=== PATIENT | male | born 1935 | race Caucasian/White ===

== ENCOUNTER 2022-08-07 14:05 | Outpatient (REF) | payer MEDICARE, SELFPAY ==
--- NOTE | ~2022-08-07 | US_ITS ---
EXAMINATION: US THYROID CLINICAL INFORMATION: Single thyroid nodule. COMPARISON: None TECHNIQUE: Linear transducer grayscale and color Doppler examination with attention to the region of the thyroid. FINDINGS: SIZE: Measurements of the thyroid lobes and nodules are given in sagittal, anteroposterior and transverse dimensions respectively. Right Thyroid Lobe: 6.2 x 2.7 x 1.8 cm, volume 16.0 mL. Parenchyma: The gland echotexture is homogeneous. Thyroid vascularity is increased. Left Thyroid Lobe: 5.6 x 2.3 x 2.1 cm, volume 14.7 mL. Parenchyma: The gland echotexture is homogeneous. Thyroid vascularity is increased. Isthmus: 0.3 cm in maximum AP dimension. Estimated total number of nodules greater than or equal to 1 cm: 1. 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 Location: Right inferior. Size: 0.7 x 0.6 x 0.6 cm, volume 0.1 mL. Nodule characteristics: Composition: Solid (2). Echogenicity: Isoechoic (1). Shape: Not taller than wide (0). Margins: Ill-defined (0). Echogenic Foci: None (0). ACR TI-RADS total points: 3 ACR TI-RADS category: 3 2. Location: Right inferior. Size: 0.6 x 0.3 x 0.6 cm, volume 0.1 mL. Nodule characteristics: Composition: Solid/almost completely solid (2). Echogenicity: Isoechoic (1). Shape: Not taller than wide (0). Margins: Ill-defined (0). Echogenic Foci: Comet-tail artifacts (0). ACR TI-RADS total points: 3 ACR TI-RADS category: 3 3. Location: Left mid. Size: 2.0 x 1.4 x 1.6 cm, volume 2.3 mL. Nodule characteristics: Composition: Mixed cystic and solid (1). Echogenicity: Cannot be determined (1). Shape: Not taller than wide (0). Margins: Smooth (0). Echogenic Foci: Comet-tail artifacts (0). ACR TI-RADS total points: 2 ACR TI-RADS category: 2 4. Location: Left inferior. Size: 0.4 x 0.4 x 0.5 cm, volume 0.04 mL. Nodule characteristics: Composition: Solid (2). Echogenicity: Isoechoic (1). Shape: Not taller than wide (0). Margins: Ill-defined (0). Echogenic Foci: None (0). ACR TI-RADS total points: 3 ACR TI-RADS category: 3 NODES: No lymphadenopathy is seen in the tissue surrounding the thyroid gland. US/US thyroid IMPRESSION: 1. Bilateral thyroid nodules are noted, as detailed. 2. There is a diffuse goiter. 3. There is increased thyroid vascularity, which can be associated with thyroiditis. ACR TI-RADS RECOMMENDATION REFERENCE: Ultrasound-guided fine-needle aspiration, followup ultrasound, no further follow up. * TR1 (0 point) and TR 2 (2 points): No FNA or follow up. * TR3 (3 points): FNA if more than or equal to 2.5 cm in maximum dimension, followup ultrasound in 1, 3 and 5 years if 1.5 to 2.4 cm in maximum dimension. * TR4 (4-6 points): FNA if more than or equal to 1.5 cm in maximum dimension, followup ultrasound in 1, 2, 3 and 5 years if 1 to 1.4 cm in maximum dimension. * TR5 (more than or equal to 7 points): FNA if more than or equal to 1 cm in maximum dimension, followup ultrasound every year for 5 years if 0.5 to 0.9 cm in maximum dimension. * TR3, TR4 or TR5 nodules that are below the size threshold for followup receive no follow up.
--- NOTE | ~2022-08-07 | US_ITS ---
EXAMINATION: US RETROPERITONEAL LIMITED (RENAL ONLY) CLINICAL INFORMATION: Bilateral flank pain. COMPARISON: None TECHNIQUE: Real-time imaging of the kidneys. FINDINGS: RIGHT KIDNEY: 9.9 x 5.3 x 5.2 cm (SAG x AP x TRV). The kidney is normal in size, contour, and echogenicity. Renal cortical thickness is normal. No focal parenchymal lesions or hydronephrosis. At the interpolar aspect, a 2 mm nonobstructing calculus is seen, with twinkle artifact. At the lower pole, a 2 mm hyperechoic focus is seen, which does not meet formal ultrasound criteria for a calculus. LEFT KIDNEY: 8.8 x 4.2 x 5.5 cm (SAG x AP x TRV). The kidney is normal in size, contour, and echogenicity. Renal cortical thickness is normal. No renal calculi or focal parenchymal lesions. US/US renal BI IMPRESSION: A 2 mm right renal calculus is seen. No left renal calculus is seen. There is no hydronephrosis noted bilaterally.
== END 2022-08-07 14:06 | disposition home or self-care (01) ==
LOC: HO.US 14:05
PROVIDERS: Visit Provider Family Medicine
DX: E04.1 Nontoxic single thyroid nodule (principal); R10.9 Unspecified abdominal pain; C67.9 Malignant neoplasm of bladder, unspecified
CPT/HCPCS: 76536; 76775

== ENCOUNTER 2023-11-26 07:28 | Outpatient (REF) | payer BC, SELFPAY ==
--- NOTE | ~2023-11-26 | XR_ITS ---
EXAMINATION: XR SHOULDER, RIGHT CLINICAL INFORMATION: Pain. COMPARISON: None available. TECHNIQUE: AP neutral and scapular Y views of the right shoulder are submitted. FINDINGS: Bony alignment and mineralization are normal. No fracture or dislocation is seen. The glenohumeral joint is intact. A small accessory ossification center or loose body is seen inferior to the glenoid process. There is mild osteoarthritic change of the glenoid rim. The acromioclavicular and coracoclavicular intervals are normal. There is mild osteoarthritic change of the acromioclavicular joint. There is a distal acromial undersurface osteophyte. There is mild calcific tendinitis of the right rotator cuff insertion. There is a 1.1 cm round soft tissue calcification seen in the soft tissues of the anterior right upper arm. XR/XR shoulder RT min 2V IMPRESSION: 1. There is mild osteoarthritic change of the right glenohumeral and acromioclavicular joints. 2. There is calcific tendinitis of the right rotator cuff insertion. 3. A 1.1 cm round soft tissue calcification is seen in the soft tissues of the anterior upper right arm.
== END 2023-11-26 07:29 | disposition home or self-care (01) ==
LOC: HO.HOSX 07:28
PROVIDERS: Visit Provider Orthopaedic Surgery
DX: M25.811 Other specified joint disorders, right shoulder (principal)
CPT/HCPCS: 20610; 73030; J1020

== ENCOUNTER 2023-11-26 10:39 | Outpatient (AMB) | payer BC, SELFPAY ==
--- NOTE | 2023-11-26 10:40 | A.OFFVIS_ITS ---
Intake Vital Signs 11/26/23 11:11 Height 5 ft 8 in Weight 150 lb BMI 22.8 Intake Visit Reasons: [employer]- RT shoulder pain Intake Note: Yovany is a 88 year old Right handed new patient who presents with Right shoulder pain. Patient reports that his ROM has gotten worse over the last two months. Patient denies any numbness or tingling. The patient states that he aggravated his shoulder while shoveling snow. He has tried Tylenol and anti- inflammatory medicines which gave him minimal relief. Allergies No Known Allergies Allergy (Verified 11/26/23 10:58) Medication List - Last Reconciled 11/26/23 by Baljit Mo MD amlodipine 10 mg PO DAILY carvedilol 6.25 mg PO BID dicyclomine 10 mg PO BID PRN PFSH Surgical History (Updated 11/26/23 @ 11:05 by Evonne Herzog CMA) History of penectomy (~2017) Hx of prostatectomy (~2005) History of bladder surgery (~2005) Social History (Updated 11/26/23 @ 11:01 by Evonne Herzog CMA) Patient Tobacco Use Status: Former Tobacco user Physical Exam Vital Signs: BMI result Body Mass Index 22.8 Const Other: Well-nourished well-developed very friendly male awake alert and oriented x3 in no acute distress Extrem Other: Bilateral upper extremity examination shows good capillary refill, no skin lesions noted, normal sensation light touch Right shoulder examination shows slightly decreased range of motion when compared to his left shoulder, 4/5 strength with supraspinatus testing, positive impingement signs, no instability Office Procedures Joint Injection/Drain Joint Injection/Drain Primary Site: right shoulder Prep: site was prepped using aseptic technique Injected: 40 mg of, DepoMedrol and 1% plain lidocaine Procedure: The patient tolerated the procedure well Coding 16695 - Large joint Procedure code (CPT) selection complete Results Reviewed Results Reviewed: X-rays of the patient's right shoulder show moderate to severe acromioclavicular joint narrowing, a type 2 acromion, no acute bony abnormalities Assessment & Plan Assessment & Plan (1) Impingement of right shoulder: Code(s): M25.811 - Other specified joint disorders, right shoulder Plan Mr. Pierre presents with right shoulder pain due to impingement syndrome and rotator cuff tendinosis versus possible rotator cuff tearing. I had a lengthy discussion with the patient regarding the treatment options. He wishes to hold off on surgery for as long as possible. I agree with this plan. The risks and benefits of a right shoulder cortisone injection were discussed at length with the patient. The patient wished to proceed. He tolerated the injection well. He will continue with his home stretching program to prevent stiffness. Will contact me prior to his follow-up appointment in 3 months should any questions or concerns arise. Feel free to call me at any time should questions regarding his orthopedic management arise. I spent 22 minutes in reviewing the patient's records and imaging studies, seeing the patient and documenting in the medical record. Orders: Orders AMB Joint Injection/Aspiration Today M25.811 - Other specified joint disorders, right shoulder Coding Level of Care Code New Pt Level 2 (96584) Diagnoses Impingement of right shoulder M25.811 CPT Codes Coding - 71136 Large joint: 87992 - Large joint ([id number])
[2023-11-26 11:11] VITALS: BMI 22.8
== END 2023-11-26 11:24 | disposition home or self-care (01) ==
PROVIDERS: Visit Provider Orthopaedic Surgery
DX: M25.811 Other specified joint disorders, right shoulder (principal)
CPT/HCPCS: 20610; 99202

== ENCOUNTER 2024-02-26 10:13 | Outpatient (REF) | payer MEDICARE, SELFPAY ==
--- NOTE | ~2024-02-26 | XR_ITS ---
EXAMINATION: XR KNEE, LEFT CLINICAL INFORMATION: Pain in left knee COMPARISON: None available. TECHNIQUE: Three views of the left knee. FINDINGS: No fracture. Small joint effusion. There is moderate narrowing of the medial joint compartment with associated chondrocalcinosis. There is extensive arterial vascular calcification indicative of atherosclerotic disease. Nonstandard sunrise views limits evaluation of the patellofemoral joint compartment. XR/XR knee LT 3V IMPRESSION: 1. 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 2. Chondrocalcinosis. 3. Small joint effusion.
--- NOTE | ~2024-02-26 | XR_ITS ---
EXAMINATION: XR LUMBOSACRAL SPINE CLINICAL INFORMATION: Low back pain, unspecified COMPARISON: None available. TECHNIQUE: Three standing views of the lumbosacral spine. FINDINGS: There is moderate curve of the lumbar spine, convex right. There is straightening of the usual sterile lumbar lordosis which can be seen with muscle spasm. There are 5 nonrib-bearing lumbar-type vertebral bodies. The height of vertebral bodies is well-maintained. There is disc space narrowing with marginal osteophyte formation seen at L2-L3, L3-L4, L4-L5. The L5-S1 disc space is narrow. There is multilevel degenerative facet joint disease. There is grade 1 anterolisthesis of L3 respect to L4. There is extensive calcification of the abdominal aorta with mid to lower abdominal aortic aneurysm with maximal dimension of 3.2 cm anterior to posterior. Small coil sutures are seen in the right lower quadrant XR/XR lumbar spine 2-3V IMPRESSION: 1. Muscle spasm. 2. Moderate curve of the lumbar spine, convex right. 3. Multilevel degenerative disc disease and degenerative facet joint disease. 4. Grade 1 anterolisthesis of L3 on L4. 5. Mid to distal abdominal aortic aneurysm. Ultrasound of the abdominal aorta is recommended.
== END 2024-02-26 10:14 | disposition home or self-care (01) ==
LOC: HO.HOSX 10:13
PROVIDERS: Visit Provider Orthopaedic Surgery
DX: M54.50 Low back pain, unspecified (principal); M25.562 Pain in left knee
CPT/HCPCS: 72100; 73562

== ENCOUNTER 2024-02-26 12:35 | Outpatient (AMB) | payer BC, SELFPAY ==
[2024-02-26 12:52] VITALS: BMI 22.8
--- NOTE | 2024-02-26 12:52 | A.OFFVIS_ITS ---
Vital Signs 02/26/24 12:52 Height 5 ft 8 in Weight 150 lb BMI 22.8 Intake Visit Reasons: [employer]- LT leg pain Intake Note: Yovany is a 88 year old male who presents with Left leg pain from the knee down. Patient reports it has been going on for about a year and is a 9 on the 1- 10 pain scale. He states he is using aspircreme and acetaminophen with a little relief. He denies injury or surgery. He also reports intermittent back pain. The patient states that he did have an MRI of his low back 1-2 years ago at another facility. He is not sure of the exact location where the imaging study was performed. The patient states that he did not follow-up with a back specialist following the MRI. Allergies No Known Allergies Allergy (Verified 11/26/23 10:58) Medication List - Last Reconciled 02/26/24 by Baljit Mo MD amlodipine 10 mg PO DAILY aspirin 81 mg PO DAILY atorvastatin 10 mg PO DAILY carvedilol 6.25 mg PO BID dicyclomine 10 mg PO BID PRN PFSH Surgical History (Updated 11/26/23 @ 11:05 by Evonne Herzog CMA) History of penectomy (~2018) Hx of prostatectomy (~2005) History of bladder surgery (~2005) Social History (Updated 11/26/23 @ 11:01 by Evonne Herzog CMA) Patient Tobacco Use Status: Former Tobacco user Physical Exam Vital Signs: BMI result Body Mass Index 22.8 Const Other: Well-nourished well-developed very friendly male awake alert and oriented x3 in no acute distress Back/Spine/Pelvis Other: Low back examination shows left-sided paraspinal muscle tenderness, pain with range of motion, positive straight leg raise test on the left at 70 degrees Extrem Other: Left knee examination shows a minimal effusion, minimal crepitus with range of motion, minimal discomfort with range of motion, no instability Results Reviewed Results Reviewed: X-rays of the patient's lumbar spine taken today show diffuse degenerative disc disease, no acute bony abnormalities Of the patient's left knee taken today show mild to moderate joint space narrowing, no acute bony abnormalities Assessment & Plan Assessment & Plan (1) Low back pain: Code(s): M54.50 - Low back pain, unspecified Category: Medical (2) Left knee pain: Code(s): M25.562 - Pain in left knee Category: Medical Plan Mr. Pierre presents with progressively worsening low back pain which radiates down his left leg most likely due to lumbar stenosis or a disc herniation. Thus, I will arrange for the patient to have an evaluation in our pain management clinic. The patient states that he might be interested in a cortisone injection if he has a candidate for one. The patient is also instructed to get a copy of his previous lumbar spine MRI if at all possible. He will follow up with me on an as-needed basis. Feel free to call me at any time should questions regarding his orthopedic management arise. I spent 22 minutes in reviewing the patient's records and imaging studies, seeing the patient and documenting in the medical record. Orders: Orders XR lumbar spine 2-3V Today M54.50 - Low back pain, unspecified XR knee LT 3V Today M25.562 - Pain in left knee XR hip LT min 2V Today M25.552 - Pain in left hip Referrals Pain Management Referral M25.562 - Pain in left knee, M54.50 - Low back pain, unspecified
== END 2024-02-26 13:12 | disposition home or self-care (01) ==
PROVIDERS: Visit Provider Orthopaedic Surgery
DX: M54.50 Low back pain, unspecified (principal); M25.562 Pain in left knee
CPT/HCPCS: 99214

== ENCOUNTER 2024-10-13 12:43 | Outpatient (AMB) | payer BC, SELFPAY ==
--- NOTE | 2024-10-13 13:20 | MHC.OFFVIS ---
Vital Signs 10/13/24 13:21 Height 5 ft 8 in Weight 150 lb BMI 22.8 Intake Visit Reasons: Right shoulder pain Intake Note: Yovany is an 89 year old who presents with complaints of progressively worsening right shoulder pain. The pain as sharp nature. He has had cortisone injections in the past which gave him fairly good relief. He has done physical therapy exercises which aggravated his pain. He has tried Tylenol which gives him mild relief. He wishes to hold off on surgery if at all possible. Allergies No Known Allergies Allergy (Verified 10/13/24 13:21) Medication List - Last Reconciled 10/14/24 by Baljit Mo MD amlodipine 10 mg PO DAILY aspirin 81 mg PO DAILY atorvastatin 10 mg PO DAILY carvedilol 6.25 mg PO BID dicyclomine 10 mg PO BID PRN PFSH Surgical History (Updated 11/26/23 @ 11:05 by Evonne Herzog CMA) History of penectomy (~2017) Hx of prostatectomy (~2005) History of bladder surgery (~2005) Social History (Updated 11/26/23 @ 11:01 by Evonne Herzog CMA) Patient Tobacco Use Status: Former Tobacco user Physical Exam Vital Signs: BMI result Body Mass Index 22.8 Const Other: Well-nourished well-developed very friendly male awake alert and oriented x3 in no acute distress Extrem Other: Bilateral upper extremity examination shows good capillary refill, no skin lesions noted, normal sensation light touch Right shoulder examination shows slightly decreased range of motion when compared to his left shoulder, 4/5 strength with supraspinatus testing, positive impingement signs, tenderness over his acromioclavicular joint, no instability Office Procedures AMB Joint Injection/Aspiration Joint Injection/Aspiration Primary Site: right shoulder Prep: site was prepped using aseptic technique Injected: 40 mg of, DepoMedrol and 1% plain lidocaine Procedure: The patient tolerated the procedure well Coding 56469 - Large joint Procedure code (CPT) selection complete Assessment & Plan Assessment & Plan (1) Impingement of right shoulder: Code(s): M25.811 - Other specified joint disorders, right shoulder Category: Medical (2) Right shoulder pain: Code(s): M25.511 - Pain in right shoulder Plan Mr. Carter presents with right shoulder pain due to impingement syndrome and possible rotator cuff tearing. I had a lengthy discussion with the patient regarding the treatment options. The risks and benefits of a right shoulder cortisone injection were discussed at length with the patient. The patient wished to proceed. He tolerated the injection well. He will continue with his home stretching program. He will contact me prior to his follow-up appointment in 3 months should any questions or concerns arise. Feel free to call me at any time should questions regarding his orthopedic management arise. I spent 21 minutes in reviewing the patient's records and imaging studies, seeing the patient and documenting in the medical record. Orders: Orders AMB Joint Injection/Aspiration 10/13/24 M25.811 - Other specified joint disorders, right shoulder Coding Level of Care Code Est Pt Level 3 (94899) Complex EM visit Add On G2211 Diagnoses Impingement of right shoulder M25.811 Right shoulder pain M25.511 CPT Codes Coding - 73627 Large joint: 49669 - Large joint ([id number])
[2024-10-13 13:21] VITALS: BMI 22.8
== END 2024-10-13 14:02 | disposition home or self-care (01) ==
PROVIDERS: Visit Provider Orthopaedic Surgery
DX: M25.811 Other specified joint disorders, right shoulder (principal); M25.511 Pain in right shoulder
CPT/HCPCS: 20610; 99213

== ENCOUNTER → 2024-10-13 12:43 | Outpatient (BNVA) | payer BC, SELFPAY | PROVIDERS: Visit Provider Orthopaedic Surgery | DX: M25.511 Pain in right shoulder (principal); M25.811 Other specified joint disorders, right shoulder | CPT/HCPCS: 20610; J1010; J2003 ==

== ENCOUNTER 2025-01-11 13:01 | Outpatient (AMB) | payer MEDICARE, SELFPAY ==
--- NOTE | 2025-01-11 13:34 | MHC.OFFVIS ---
Vital Signs 01/11/25 13:35 Height 5 ft 8 in Weight 150 lb BMI 22.8 Intake Visit Reasons: Inj-Right shoulder, injection-last 10/13/24 Intake Note: Yovany is an 89 year old male who presents with complaints of right shoulder pain. He describes his pain as achy in nature. He has had cortisone injections in the past which gave him fairly good relief. He wishes to hold off on surgery if at all possible. He has tried Tylenol which gives him mild relief. Allergies gluten [Gluten] Allergy (Intermediate, Unverified 01/11/25 13:36) DIARRHEA polysorbate Adverse Reaction (Intermediate, Uncoded 01/11/25 13:36) DIARRHEA Medication List - Last Reconciled 01/11/25 by Baljit Mo MD amlodipine 10 mg PO DAILY aspirin 81 mg PO DAILY atorvastatin 10 mg PO DAILY carvedilol 6.25 mg PO BID dicyclomine 10 mg PO BID PRN PFSH Surgical History (Updated 10/15/24 @ 14:32 by Ximena Thompson) History of penectomy (~2017) Hx of prostatectomy (~2005) History of bladder surgery (~2005) Social History (System 10/15/24 @ 14:32 by Ximena Thompson) Patient Tobacco Use Status: Former Tobacco user Physical Exam Vital Signs: BMI result Body Mass Index 22.8 Const Other: Well-nourished well-developed very friendly male awake alert and oriented x3 in no acute distress Extrem Other: Bilateral upper extremity examination shows good capillary refill, no skin lesions noted, normal sensation light touch Right shoulder examination shows slightly decreased range of motion when compared to his left shoulder, 4+ out of 5 strength with supraspinatus testing, positive impingement signs, no instability Office Procedures AMB Joint Injection/Aspiration Joint Injection/Aspiration Primary Site: right shoulder Prep: site was prepped using aseptic technique Injected: 40 mg of, DepoMedrol and 1% plain lidocaine Procedure: The patient tolerated the procedure well Coding 98243 - Large joint Procedure code (CPT) selection complete Assessment & Plan Assessment & Plan (1) Impingement of right shoulder: Code(s): M25.811 - Other specified joint disorders, right shoulder Category: Medical Plan Mr. Carter presents with right shoulder pain due to impingement syndrome. The risks and benefits of a right shoulder cortisone injection were discussed at length with the patient. The patient wished to proceed. He tolerated the injection well. He will continue with his home stretching program. He will contact me prior to his follow-up appointment in 3 months should any questions or concerns arise. Feel free to call me at any time should questions regarding his orthopedic management arise. I spent 22 minutes in reviewing the patient's records and imaging studies, seeing the patient and documenting in the medical record. Orders: Orders AMB Joint Injection/Aspiration 01/11/25 M25.811 - Other specified joint disorders, right shoulder Medications: New celecoxib (Celebrex) 200 mg PO DAILY PRN 30 caps 3RF pain Coding Level of Care Code Est Pt Level 3 (12131) Complex EM visit Add On G2211 Diagnoses Impingement of right shoulder M25.811 CPT Codes Coding - 74664 Large joint: 93724 - Large joint ([id number])
[2025-01-11 13:35] VITALS: BMI 22.8
== END 2025-01-11 13:59 | disposition home or self-care (01) ==
PROVIDERS: PCP Family Medicine; Visit Provider Orthopaedic Surgery
DX: M25.811 Other specified joint disorders, right shoulder (principal)
CPT/HCPCS: 20610; 99213

== ENCOUNTER → 2025-01-11 13:01 | Outpatient (BNVA) | payer MEDICARE, SELFPAY | PROVIDERS: PCP Family Medicine; Visit Provider Orthopaedic Surgery | DX: M25.811 Other specified joint disorders, right shoulder (principal) | CPT/HCPCS: 20610; 99212; J1010; J2003 ==

== ENCOUNTER 2025-04-13 13:14 | Outpatient (AMB) | payer MEDICARE, SELFPAY ==
[2025-04-13 13:19] VITALS: BMI 22.8
--- NOTE | 2025-04-13 13:19 | MHC.OFFVIS ---
Vital Signs 04/13/25 13:19 Height 5 ft 8 in Weight 150 lb BMI 22.8 Intake Visit Reasons: Right shoulder pain Intake Note: Yovany is an 89 year old male who presents with complaints of right shoulder pain. He describes his pain as sharp in nature. Most of the pain is along the lateral aspect of his shoulder. He denies any weakness. He has tried Tylenol, anti-inflammatory medicines and physical therapy exercises which aggravated his pain. He has had cortisone injections in the past which gave him fairly good relief. He wishes to hold off on surgery if at all possible. Allergies gluten [Gluten] Allergy (Intermediate, Unverified 04/13/25 13:19) DIARRHEA polysorbate Adverse Reaction (Intermediate, Uncoded 04/13/25 13:19) DIARRHEA Medication List - Last Reconciled 04/13/25 by Baljit Mo MD amlodipine 10 mg PO DAILY aspirin 81 mg PO DAILY atorvastatin 10 mg PO DAILY carvedilol 6.25 mg PO BID celecoxib (Celebrex) 200 mg PO DAILY PRN dicyclomine 10 mg PO BID PRN PFSH Surgical History (Updated 10/15/24 @ 14:32 by Ximena Thompson) History of penectomy (~2017) Hx of prostatectomy (~2005) History of bladder surgery (~2005) Social History (System 10/15/24 @ 14:32 by Ximena Thompson) Patient Tobacco Use Status: Former Tobacco user Physical Exam Vital Signs: BMI result Body Mass Index 22.8 Const Other: Well-nourished well-developed very friendly male awake alert and oriented x3 in no acute distress Extrem Other: Right shoulder examination shows slightly decreased range of motion when compared to his left shoulder, 4+ out of 5 strength with supraspinatus testing, positive impingement signs, no instability Office Procedures AMB Joint Injection/Aspiration Joint Injection/Aspiration Primary Site: right shoulder Prep: site was prepped using aseptic technique Injected: 40 mg of, DepoMedrol and 1% plain lidocaine Procedure: The patient tolerated the procedure well Coding 19896 - Large joint Procedure code (CPT) selection complete Assessment & Plan Assessment & Plan (1) Impingement of right shoulder: Code(s): M25.811 - Other specified joint disorders, right shoulder Category: Medical (2) Right shoulder pain: Code(s): M25.511 - Pain in right shoulder Plan Mr. Carter presents with right shoulder pain due to impingement syndrome. The risks and benefits of a right shoulder cortisone injection were discussed at length with the patient. The patient wished to proceed. He tolerated the injection well. He will continue with his home stretching program to prevent stiffness. He will contact me prior to his follow-up appointment in 3 months should any questions or concerns arise. Feel free to call me at any time should questions regarding his orthopedic management arise. I spent 20 minutes in reviewing the patient's records and imaging studies, seeing the patient and documenting in the medical record. Orders: Orders AMB Joint Injection/Aspiration Today M25.811 - Other specified joint disorders, right shoulder Coding Level of Care Code Est Pt Level 3 (28704) Complex EM visit Add On G2211 Diagnoses Impingement of right shoulder M25.811 Right shoulder pain M25.511 CPT Codes Coding - 08069 Large joint: 84585 - Large joint ([id number])
--- OUTSIDE RECORDS SUMMARY | 2025-04-13 13:32 | XMS_ITS | Patient Health Record ---
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 Name Role Phone Mathieu Anderson MD Primary Care Provider Doug Vasquez Unavailable [phone] Reason For Referral No Information Medications Medication SIG (Take, Route, Frequency, Duration) Notes Start Date End Date Status Dicyclomine HCl 20 MG Orally twice a day Active Carvedilol 25 MG Orally twice a day Active Aspirin 35mg Once a day Active Imodium A-D Active Ranitidine 150 mg Ac tive Cilostazol Active Doxycycline Active Atorvastatin Calcium 10 MG Orally Once a day Active amLODIPine Besylate Active Social History Tobacco Use: Social History Observation Description Date Details (start date - stop date) Former Smoker NA - NA Tobacco Use/Smoking Question Answer Notes Are you a: former smoker When did you start smoking? 1950 When did you stop smoking? 2005 Additional Findings: Tobacco Non-User Current no n-smoker Alcohol Screen Question Answer Notes Did you have a drink containing alcohol in the p ast year? No Points 0 Interpretation Negative Tobacco use other than smoking: Question Answer Notes Are you an other tobacco user? 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 Plan Of Treatment Pending Test Test Name Order Date [id number] NAIL, 1-5 09/01/2017 [id number] Plate 09/01/2017 [id number]- Debride <25 sq cm 09/15/2017 Insurance Providers Payer Name Payer Address Payer Phone Subscriber Number Group Number Insured Name Patient Relationship to Insured Coverage Start Date Coverage End Date [employer] 65 Medicare Preferred [address] [place] [address] [phone] [id number] Yovany Carter Self - patient is the insured Medical (General) History Medical History History ICD Code Arthritis Cancer Cataracts High blood pressure Lyme disease (present) Poor circulation Scarlet fever Reflux ( GERD) Measles Mumps Chicken pox Surgical History Surgery Date(Month/Year) bladder removed 2005 prostate removed 2005 eye surgery 1989 hernia
== END 2025-04-13 13:46 | disposition home or self-care (01) ==
PROVIDERS: PCP Family Medicine; Visit Provider Orthopaedic Surgery
DX: M25.811 Other specified joint disorders, right shoulder (principal); M25.511 Pain in right shoulder
CPT/HCPCS: 20610; 99213

== ENCOUNTER → 2025-04-13 13:14 | Outpatient (BNVA) | payer MEDICARE, SELFPAY | PROVIDERS: PCP Family Medicine; Visit Provider Orthopaedic Surgery | DX: M25.811 Other specified joint disorders, right shoulder (principal); M25.511 Pain in right shoulder | CPT/HCPCS: 20610; 99212; J1010; J2003 ==

== ENCOUNTER 2025-06-25 14:30 | Inpatient (IN) | payer MEDICARE, SELFPAY ==
[2025-06-25] VITALS (20 sets, daily range): BP systolic 121–172; BP diastolic 53–73; PULSE 87–129; RESP 19–36; TEMP 36.7–36.9; O2SAT 86–94; BMI 25.6
--- NOTE | 2025-06-25 | ECG_ITS ---
Test Reason : REPEAT Blood Pressure : */* mmHG Vent. Rate : 98 BPM Atrial Rate : 98 BPM P-R Int : 144 ms QRS Dur : 86 ms QT Int : 372 ms P-R-T Axes : 89 67 250 degrees QTcB Int : 474 ms Sinus rhythm with Premature supraventricular complexes Left ventricular hypertrophy with repolarization abnormality ( Sokolow-Nguyen ) Abnormal ECG When compared with ECG of 25-Jun-2025 21:30, Sinus rhythm has replaced Atrial fibrillation ST now depressed in Anterior leads T wave inversion now evident in Anterior leads Referred By: Oksana Quintana Electronically Signed By: MEGAN HUMMEL MD
--- NOTE | ~2025-06-25 | XR_ITS ---
CLINICAL HISTORY: sob 1 view chest x-ray Comparison: None provided Findings: Bilateral perihilar opacities. Bilateral lower lobe pleural-parenchymal opacities. No pneumothorax. Heart size is upper limits of normal with a densely calcified aorta. No acute fracture. IMPRESSION: 1. Small bilateral pleural effusions, left greater than right. 2. Bilateral lower lobe compressive atelectasis and/or consolidation, left greater than right. 3. Bilateral perihilar opacities secondary to pneumonitis or edema. This document has been electronically signed by: Susan Fried DO on 06/25/2025 16:09:06
--- NOTE | ~2025-06-25 | US_ITS ---
CLINICAL HISTORY: RLE edema>LLE. r o DVT Venous duplex ultrasound right lower extremity Comparison: None provided Findings: The visualized deep veins are fully compressible with normal Doppler color flow and spectral tracings. No popliteal cyst. IMPRESSION: 1. Negative for right lower extremity deep vein thrombosis. This document has been electronically signed by: Mathieu Garduno MD on 06/26/2025 08:30:10
--- NOTE | ~2025-06-25 | CT_ITS ---
CLINICAL HISTORY: hypoxia CT ANGIOGRAPHY CHEST WITH CONTRAST. 3D POSTPROCESSING. Comparison: CR - XR CHEST 1V - 06/25/25 14:37 EDT Findings: Extensive atherosclerotic changes in the thoracic aorta and branch vessel origins with no aneurysm or dissection. Prominent coronary artery calcifications. No significant pericardial effusion. Normal RV/LV ratio. No acute pulmonary embolus. Multiple small hilar and mediastinal lymph nodes are likely reactive in etiology. The visualized thyroid gland appears unremarkable. Moderate bilateral pleural effusions. Confluent airspace opacities in the bilateral lower lobes. No pneumothorax. Small hepatic cysts. The bones are intact. IMPRESSION: 1. No pulmonary embolus is evident. 2. Moderate bilateral pleural effusions. 3. Bilateral lower lobe compressive atelectasis and/or consolidation. This document has been electronically signed by: Susan Fried DO on 06/25/2025 19:56:13
--- NOTE | 2025-06-25 14:38 | ECG_ITS ---
Test Reason : SOB Blood Pressure : */* mmHG Vent. Rate : 99 BPM Atrial Rate : 99 BPM P-R Int : 146 ms QRS Dur : 90 ms QT Int : 388 ms P-R-T Axes : 91 55 45 degrees QTcB Int : 497 ms Sinus rhythm with marked sinus arrhythmia with occasional Premature ventricular complexes Nonspecific ST abnormality Prolonged QT Abnormal ECG When compared with ECG of 14-Jan-2020 04:33, Premature ventricular complexes are now Present Referred By: Shaun Linder Electronically Signed By: Pradeep Berman
--- NOTE | 2025-06-25 14:45 | ED_ITS ---
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 Over the past week patient has been feeling more fatigued than usual, and has been having difficulty catching his breath. Has also noted worsening lower extremity swelling that does not improve despite elevating extremities. Denies CP, fevers, chills, recent illness, nausea, vomiting, diaphoresis, back pain, shoulder pain, recent sick contacts, changes in diet Related Data Home Medications ?Medication ?Instructions ?Recorded ?Confirmed amlodipine 10 mg tablet 10 mg PO DAILY 11/26/2303/04 carvedilol 6.25 mg tablet 6.25 mg PO BID 11/26/2303/04 dicyclomine 10 mg capsule 10 mg PO BID PRN 11/26/23 aspirin 81 mg tablet,delayed 81 mg PO DAILY 02/26/24 0 04/13/25 release atorvastatin 10 mg tablet 10 mg PO DAILY 02/26/2403/04 Previous Rx's ?Medication ?Instructions ?Recorded celecoxib 200 mg capsule (Celebrex) 200 mg PO DAILY AR N pain #30 caps 01/11/25 Allergies Allergy/AdvReac Type Severity Reaction Status Date / Time gluten (Gluten) Allergy Intermediate DIARRHEA Verified 06/25/25 14:44 polysorbate AdvReac Intermediate DIARRHEA Uncoded 06/25/25 14:44 Review of Systems 2 Review of Systems: Yes all other systems are reviewed and are negative PMFSH Past Medical History Attestation statement: The following information was validated with the patient. Source: old records reviewed and nursing notes reviewed Surgical History History of penectomy (~2017) Hx of prostatectomy (~2005) History of bladder surgery (~2005) Social History Social History Patient Tobacco Use Status: Former Tobacco user Smoked in Last 30 Days: No Use of substances other than those prescribed or required for medical reasons: No Advance Directives: No Advance Directives Information Provided: No Do you have a plan to hurt others: No Plan Physical Exam ED Exam Exam: Appearance: Alert.? Oriented X3.? patient with increased work of breathing Head: Normocephalic, atraumatic, no step-offs or deformities Eyes: Pupils equal, round and reactive to light.? ENT: Pharynx normal.? Neck: Normal inspection.? Neck supple.? CVS: Normal heart rate and rhythm.? Pulses normal.? Respiratory: + mild respiratory distress.? Breath sounds fint bibasilar crackles.? Abdomen: Soft and nontender.? Skin: Skin warm and dry.? Normal skin color.? Normal skin turgor.? Extremities: + 2+ nonpitting edema to bilateral lower extremities from the knee down.? No calf ttp. 5/5 strength to bilateral upper and lower extremities Back: No midline tenderness, no C-spine tenderness, full range of motion, no CVA tenderness bilaterally Neuro: Oriented X 3.? No motor deficit.? No sensory deficit. CN 2-12 intact Vital Signs: Vital Signs - 24 hr 06/25/25 14:41 06/25/25 15:12 06/25/25 15:13 Temperature Pulse Rate 96 95 Respiratory Rate 36 H Blood Pressure 160/69 H 164/53 H 164/53 H Pulse Oximetry 86 L Oxygen Delivery Method Oxymask Oxygen Flow Rate 06/25/25 15:14 06/25/25 15:19 06/25/25 15:36 Temperature Pulse Rate 90 93 Respiratory Rate 28 H 28 H Blood Pressure 172/54 H Pulse Oximetry Oxygen Delivery Method Oxygen Flow Rate 06/25/25 15:37 06/25/25 15:45 06/25/25 15:51 Temperature 98.5 F Pulse Rate 100 91 Respiratory Rate 25 H Blood Pressure 172/54 H 154/62 H 142/55 H Pulse Oximetry 90 L Oxygen Delivery Method BiPAP Oxygen Flow Rate 40 06/25/25 16:04 06/25/25 16:10 06/25/25 16:39 Temperature Pulse Rate 106 H 106 H Respiratory Rate 22 H 25 H Blood Pressure 142/55 H 142/55 H Pulse Oximetry 93 Oxygen Delivery Method BiPAP Oxygen Flow Rate 06/25/25 17:17 Temperature Pulse Rate 88 Respiratory Rate Blood Pressure 132/57 L Pulse Oximetry Oxygen Delivery Method Oxygen Flow Rate BMI result Body Mass Index 25.6 Course Reevaluation(s) Reevaluation #1: patient hypertensive nitro drip initiated. He appears much more comfortable on BiPAP. Lasix given patient responding well. Will place Ramirez catheterization for fluid management. Prior to patient being put on BiPAP he was saturating 81- 82% on 15 L on an OxyMask. I suspect CHF and pulmonary edema. Time: 15:27 Reevaluation #2: Trop- 257 likely type two injury secondary to hypoxia. Time: 15:40 Reevaluation #3: Urine with leukocytosis and infection. will give it ceftriaxone. Not meeting sepsis criteria. Time: 16:14 Additional Reevaluation(s): 1645 BP better controlled. ABG reviewed and reveals respiratory alkalosis with hypoxemia. I believe this patient is appropriate for ICU level of care. 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 1700 My attending spoke to ICU patient will be an ICU admit Medications Administered Discontinued Medications Generic Name Dose Route Start Last Admin Trade Name Freq PRN Reason Stop Dose Admin Ceftriaxone Sodium 1 gm 06/25/25 16:12 06/25/25 16:20 Ceftriaxone Sodium 1 Gm Vial IVPUSH 06/25/25 16:13 1 gm ONCE ONE Administration Levalbuterol HCl 2.5 mg/ 0 mg 06/25/25 15:19 06/25/25 16:03 Ipratropium [place] 0.5 mg INHALE 06/25/25 15:20 1 dose ONCE ONE Administration Furosemide 40 mg 06/25/25 14:56 06/25/25 15:12 Furosemide 40 Mg/4 Ml Vial IVPUSH 06/25/25 14:57 40 mg STAT STA Administration Protocol Furosemide 20 mg 06/25/25 15:24 06/25/25 15:37 Furosemide 20 Mg/2 Ml Vial IVPUSH 06/25/25 15:25 20 mg ONCE ONE Administration Protocol Nitroglycerin 100 mg in 250 mls @ 0 mls/hr 06/25/25 15:15 06/25/25 17:17 Nitroglycerin/D5w IVCONT Infused .Q0M LYLE Titration Protocol Per Protocol Procedures Ultrasound ED POC Ultrasound: EMERGENCY ULTRASOUND REPORT?Point of Care Cardiac (Echo-Focus) Emergent Cardiac for Indication:? Dyspnea Views Used: Parasternal long, parasternal short, 4 chamber, subxiphoid Pericardial Effusion/Tamponade Findings: Global LV Fxn: Large left ventricle, decreased cardiac squeeze, IVC Dilation and Resp Variation:? IVC is dilated Impression: Cardiac Activity decreased , Pericardial Effusion not present , IVC Dynamics suggestive of ? hypervolemia. Performed by Dr. Monae Medical Decision Making Medical Decision Making MDM Narrative: 1455 89-year-old male presents with feeling overall unwell x1 week with progressively worsening shortness of breath. Also reports progressively worsening lower extremity edema. Has a history of COPD however no known history of CHF. He has a history of cancer. Not on blood thinners On exam patient has bibasilar crackles with increased respiratory effort and appears to be in mild respiratory distress. Bed side echo with- IVC full, B lines. LVH. --> CVF with pulmonary edema ( Dr. Siddiqi at bedside) Plan- Bipap, labs, imaging, vbg, Differential Diagnosis Differential Diagnoses: The differential diagnosis associated with the presentation includes ( On exam patient has bibasilar crackles with increased respiratory effort and appears to be in mild respiratory distress.) Admission/Observation Consideration of admission/observation: Escalation of care including admission/observation considered Consult Healthcare Provider Management of the patient was discussed with: Hospitalist Lab Data [facility] Lab Attestation statement: I reviewed the patient's lab results. 06/25/25 14:53 06/25/25 14:53 Labs: Lab Results 06/25/25 06/25/25 06/25/25 Range/Units 14:52 14:53 14:56 WBC 7.1 (4.8-10.8) X10*3/uL RBC 3.10 L (4.60-5.80) X10*6/uL Hgb 10.0 L (14.0-18.0) g/dl Hct 29.2 L (42.0-52.0) % MCV 94.2 (80.0-98.0) fL MCH 32.3 (27.0-33.0) pg MCHC 34.2 (31.0-36.0) g/dl RDW 14.8 (11.0-16.0) % Plt Count 155 L (160-400) X10*3/uL MPV 10.4 (9.4-12.4) fL Immature Gran % (Auto) 0.3 (0.0-0.4) % Neut % (Auto) 67.0 (45-73) % Lymph % (Auto) 20.9 (20-40) % [place] % (Auto) 11.4 H (2-11) % Eos % (Auto) 0.3 (0-4) % Baso % (Auto) 0.1 (0-2) % Lymph # (Auto) 1.5 (1.2-4.9) X10*3/uL [place] # (Auto) 0.8 (0.1-1.2) X10*3/uL Eos # (Auto) 0.0 (0.0-0.4) X10*3/uL Baso # (Auto) 0.0 (0.0-0.2) X10*3/uL Abs Immat Gran (auto) 0.02 (0.00-0.03) X10*3/uL Absolute Neuts (auto) 4.7 (2.0-8.3) x10*3/uL Absolute Nucleated RBC 0.000 (0.0-0.012) X10*3/uL Nucleated RBC % (auto) 0.0 (0.0-0.2) /100WBC PT 12.3 (10.9-12.4) SEC INR 1.1 (0.9-1.1) O2 Saturation % ABG pH at Pt Temp (7.35-7.45) ABG pCO2 at Pt Temp (32-45) mmHg ABG pO2 at Pt Temp (83-108) mmHg ABG HCO3 (22-26) mmol/L ABG Base Excess (Actual) mmol/L VBG pH (7.32-7.43) VBG pCO2 mmHg VBG pO2 mmHg VBG HCO3 (22-26) mmol/L VBG O2 Saturation % VBG Base Excess mmol/L Sodium 138 (135-145) mmol/L Potassium 4.0 (3.3-5.1) mmol/L Chloride 107 (96-108) mmol/L Carbon Dioxide 19 L (22-29) mmol/L Anion Gap 16 (12-20) BUN 27 H (9-16) mg/dL Creatinine 1.47 H (0.5-1.4) mg/dL Estim Creat Clear Calc 33.6 Estimated GFR 45 Random Glucose 124 H (60-115) mg/dL Lactic Acid 1.7 (0.5-2.0) mmol/L Calcium 9.3 (8.4-10.2) mg/dL Magnesium 2.4 (1.6-2.6) mg/dL Total Bilirubin 0.5 (0.0-1.0) mg/dL AST 33 (5-37) U/L ALT 16 (0-40) U/L Alkaline Phosphatase 142 H (39-117) U/L Troponin I High Sens 257.0 H* (<3.5-35.0) ng/L B-Natriuretic Peptide 1467 H (<100) pg/mL Total Protein 7.2 (6.5-8.0) g/dL Albumin 4.0 (3.5-5.0) g/dL Urine Color Urine Appearance Urine pH (5.0-9.0) Ur Specific [place] (1.005-1.025) Urine Protein (Neg-Trace) mg/dL Urine Glucose (UA) (Negative) mg/dL Urine Ketones (Negative) mg/dL Urine Blood (Negative) Urine Nitrite (Negative) Ur Leukocyte Esterase (Negative) Urine RBC (0-2) /HPF Urine WBC (0-5) /HPF Ur Squamous Epith Cells (0-2) /HPF Urine Bacteria (None Seen) Hyaline Casts (0-2) /LPF Influenza Type A (PCR) NEGATIVE (Negative) Influenza Type B (PCR) NEGATIVE (Negative) RSV RNA Qual (PCR) NEGATIVE (Negative) SARS-CoV-2 RNA (RT-PCR) NEGATIVE (Negative) 06/25/25 06/25/25 06/25/25 Range/Units 15:01 15:33 16:37 WBC (4.8-10.8) X10*3/uL RBC (4.60-5.80) X10*6/uL Hgb (14.0-18.0) g/dl Hct (42.0-52.0) % MCV (80.0-98.0) fL MCH (27.0-33.0) pg MCHC (31.0-36.0) g/dl RDW (11.0-16.0) % Plt Count (160-400) X10*3/uL MPV (9.4-12.4) fL Immature Gran % (Auto) (0.0-0.4) % Neut % (Auto) (45-73) % Lymph % (Auto) (20-40) % [place] % (Auto) (2-11) % Eos % (Auto) (0-4) % Baso % (Auto) (0-2) % Lymph # (Auto) (1.2-4.9) X10*3/uL [place] # (Auto) (0.1-1.2) X10*3/uL Eos # (Auto) (0.0-0.4) X10*3/uL Baso # (Auto) (0.0-0.2) X10*3/uL Abs Immat Gran (auto) (0.00-0.03) X10*3/uL Absolute Neuts (auto) (2.0-8.3) x10*3/uL Absolute Nucleated RBC (0.0-0.012) X10*3/uL Nucleated RBC % (auto) (0.0-0.2) /100WBC PT (10.9-12.4) SEC INR (0.9-1.1) O2 Saturation 81.0 % ABG pH at Pt Temp 7.46 H (7.35-7.45) ABG pCO2 at Pt Temp 29 L (32-45) mmHg ABG pO2 at Pt Temp 54 L (83-108) mmHg ABG HCO3 21 L (22-26) mmol/L ABG Base Excess (Actual) -1.6 mmol/L VBG pH 7.45 H (7.32-7.43) VBG pCO2 29 mmHg VBG pO2 86 mmHg VBG HCO3 20 L (22-26) mmol/L VBG O2 Saturation 98.0 % VBG Base Excess -2.1 mmol/L Sodium (135-145) mmol/L Potassium (3.3-5.1) mmol/L Chloride (96-108) mmol/L Carbon Dioxide (22-29) mmol/L Anion Gap (12-20) BUN (9-16) mg/dL Creatinine (0.5-1.4) mg/dL Estim Creat Clear Calc Estimated GFR Random Glucose (60-115) mg/dL Lactic Acid (0.5-2.0) mmol/L Calcium (8.4-10.2) mg/dL Magnesium (1.6-2.6) mg/dL Total Bilirubin (0.0-1.0) mg/dL AST (5-37) U/L ALT (0-40) U/L Alkaline Phosphatase (39-117) U/L Troponin I High Sens (<3.5-35.0) ng/L B-Natriuretic Peptide (<100) pg/mL Total Protein (6.5-8.0) g/dL Albumin (3.5-5.0) g/dL Urine Color Yellow Urine Appearance Cloudy Urine pH 6.5 (5.0-9.0) Ur Specific [place] 1.015 (1.005-1.025) Urine Protein >=1000 (4+) H (Neg-Trace) mg/dL Urine Glucose (UA) Negative (Negative) mg/dL Urine Ketones Negative (Negative) mg/dL Urine Blood Trace H (Negative) Urine Nitrite Negative (Negative) Ur Leukocyte Esterase Moderate (2+) H (Negative) Urine RBC 0-2 (0-2) /HPF Urine WBC 6-10 (0-5) /HPF Ur Squamous Epith Cells 6-10 (0-2) /HPF Urine Bacteria 4+ (None Seen) Hyaline Casts 11-20 (0-2) /LPF Influenza Type A (PCR) (Negative) Influenza Type B (PCR) (Negative) RSV RNA Qual (PCR) (Negative) SARS-CoV-2 RNA (RT-PCR) (Negative) Independent Interpretation I performed an independent interpretation of an: Plain X-Ray and Ultrasound (Bedside echo ) Radiology Impression Discussion of test interpretation with radiology: I have reviewed the radiologist's reading. Critical Care Time Critical Care Time Critical Care Time: Yes Total Critical Care Time: 45 Attestation: I attest to this time spent taking care of the patient, obtaining history, physical, reviewing labs, imaging, treatment of patients condition +/- specialist/hospitalist consult +/- procedure Discharge Plan Discharge Clinical Impression: Congestive heart failure, Pulmonary edema, Hypertensive urgency Patient Disposition: Admitted As Inpatient Print Language: Luxembourgish
[2025-06-25 14:57] LABS: MANUAL DIFF FLAG NO
[2025-06-25 14:59] LABS: Hematocrit 29.2 % (42.0-52.0); Hemoglobin 10.0 g/dl (14.0-18.0); Imm Gran Abs Auto 0.02 X10*3/uL (0.00-0.03); Imm Gran Pct Auto 0.3 % (0.0-0.4); Lymphocytes Absolute Auto 1.5 X10*3/uL (1.2-4.9); Mean Corpuscular HGB Conc 34.2 g/dl (31.0-36.0); Mean Corpuscular Hemoglobin 32.3 pg (27.0-33.0); Mean Corpuscular Volume 94.2 fL (80.0-98.0); NRBC Abs Auto 0.000 X10*3/uL (0.0-0.012); NRBC Pct Auto 0.0 /100WBC (0.0-0.2); Platelet Count 155 X10*3/uL (160-400); Red Blood Count 3.10 X10*6/uL (4.60-5.80); White Blood Count 7.1 X10*3/uL (4.8-10.8)
[2025-06-25 15:05] LABS: VBG HCO3 20 mmol/L (22-26); VBG O2 % Saturation 98.0 %
[2025-06-25 15:07] LABS: INTERNATIONAL NORM RATIO 1.1 (0.9-1.1); Prothrombin Time 12.3 SEC (10.9-12.4)
[2025-06-25] MEDS: Furosemide 40 MG/4 ML VIAL IVPUSH (15:12)
[2025-06-25] MEDS: Nitroglycerin/D5W 100 MG/250 ML INFUS..BTL IVCONT (15:13)
[2025-06-25 15:15] LABS: Alanine Aminotransferase 16 U/L (0-40); Albumin Level 4.0 g/dL (3.5-5.0); Alkaline Phosphatase 142 U/L (39-117); Anion Gap 16 (12-20); Aspartate Amino Transferase 33 U/L (5-37); Blood Urea Nitrogen 27 mg/dL (9-16); Calcium 9.3 mg/dL (8.4-10.2); Carbon Dioxide 19 mmol/L (22-29); Chloride 107 mmol/L (96-108); Creatinine Clr Calc Pharmacy 33.6; Estimated Glomerular Filt Rate 45; Magnesium 2.4 mg/dL (1.6-2.6); Potassium 4.0 mmol/L (3.3-5.1); Sodium 138 mmol/L (135-145); Total Protein 7.2 g/dL (6.5-8.0)
[2025-06-25 15:21] LABS: B Type Natriuretic Peptide 1467 pg/mL (<100)
[2025-06-25 15:34] LABS: Troponin-I High Sensitivity 257.0 ng/L (<3.5-35.0)
[2025-06-25] MEDS: Furosemide 20 MG/2 ML VIAL IVPUSH (15:37)
[2025-06-25 15:39] LABS: Appearance Urine Cloudy; Glucose Urine UA Negative (Negative); PH 6.5 (5.0-9.0); Specific Gravity - Urine 1.015 (1.005-1.025); UMIC TRIGGER UACC YES
[2025-06-25 15:39] LABS: Venous Blood Gas Refer to POC result
--- NOTE | 2025-06-25 15:39 | PC.NURSE ---
Patient BP 172/54 Currently on nitro drip 20 mcg/min Received MD order to increase drip to 60 mcg/ min Flow increased to 60 mcg/ min Patient BP 163/58 Patient currently on bipap O2 91% denies SOB Patient has urostomy bag draining yellow urine, sample collected and sent to the lab. IV 20G in left forearm and 20G in LAC
[2025-06-25 15:49] LABS: Resp Syncy Virus RNA Qual PCR NEGATIVE (Negative); SARS COV2 PCR INHOUSE NEGATIVE (Negative)
--- NOTE | 2025-06-25 15:50 | PC.NURSE ---
patient BP 159/60 increased nitro drip to 80 mcg/min
[2025-06-25 15:58] LABS: UACC Culture Trigger YES
[2025-06-25] MEDS: levalbuterol HCL 2.5 MG, Ipratropium Bromide 0.5 MG INHALE (16:03)
--- NOTE | 2025-06-25 16:10 | PC.NURSE ---
Patient BP 154/62, increased drip to 100 mcg/min HR 106
--- NOTE | 2025-06-25 16:38 | PC.NURSE ---
Patient BP 138/62 decreased nitro drip to 70 mcg/min per MD
[2025-06-25 16:40] LABS: ABG HCO3 21 mmol/L (22-26); ABG O2 % Saturation 81.0 %
--- NOTE | 2025-06-25 17:19 | PC.NURSE ---
Nitro drip D/C last pressure 132/57
[2025-06-25 17:46] LABS: VBG HCO3 24 mmol/L (22-26); VBG O2 % Saturation 85.0 %
[2025-06-25 17:47] LABS: Venous Blood Gas Refer to POC result
[2025-06-25] MEDS: Bumetanide 1 MG/4 ML VIAL 2 MG IVPUSH (17:52)
--- NOTE | 2025-06-25 17:53 | PHA.MEDREC ---
Pharmacy Consult ? Medication Reconciliation Pharmacy has completed the medication reconciliation.Med rec complete, spoke with patient who explained that he now only takes the carvedilol once a day. He also takes many vitamins at home but is unsure of names and doses
[2025-06-25 17:56] LABS: ABG Refer to POC result
[2025-06-25 18:14] LABS: Troponin-I High Sensitivity 245.4 ng/L (<3.5-35.0)
[2025-06-25] MEDS: iohexoL 350 MG/ML 100 ML INFUS..BTL 65 ML IV (18:17)
--- NOTE | 2025-06-25 18:25 | PC.NURSE ---
critical lab called from laboratory patient Trop 245.4, trop is trending down from 257. Provider made aware
--- NOTE | 2025-06-25 19:52 | P.CONCC_ITS ---
History of Present Illness Data of Consult Service Date: 06/25/25 Primary Care Provider: Ko Stubbs MD [facility] Surgical History Surgical History History of penectomy (~2017) Hx of prostatectomy (~2005) History of bladder surgery (~2005) Social History Social History Patient Tobacco Use Status: Former Tobacco user Smoked in Last 30 Days: No Use of substances other than those prescribed or required for medical reasons: No Advance Directives: No Advance Directives Information Provided: No Do you have a plan to hurt others: No Plan Meds Allergies Allergy/AdvReac Type Severity Reaction Status Date / Time gluten (Gluten) Allergy Intermediate DIARRHEA Verified 06/25/25 14:44 polysorbate AdvReac Intermediate DIARRHEA Uncoded 06/25/25 14:44 Active Medications: Current Medications Amlodipine Besylate (Amlodipine Besylate 10 Mg Tablet) 10 mg PO DAILY [facility]; Protocol Last Admin: 06/25/25 18:17 Dose: 10 mg Heparin Sodium (Porcine) (Heparin Sodium,Porcine 5,000 Unit/Ml Vial) 5,000 unit SUBCUT Q8H [facility] Last Admin: 06/25/25 17:53 Dose: 5,000 unit Sodium Chloride (0.9 % Sodium Chloride Flush 3 Ml Syringe) 3 ml IVFLUSH QSHIFT [facility] Home Medications ?Medication ?Instructions ?Recorded ?Confirmed ?Last Taken ?Type amlodipine 10 mg tablet 10 mg PO DAILY 11/26/2306/10 Unknown History carvedilol 6.25 mg tablet 6.25 mg PO DAILY 11/26/23 Unknown History dicyclomine 10 mg capsule 10 mg PO DAILY 11/26/2306/10 Unknown History aspirin 81 mg tablet,delayed 81 mg PO DAILY 02/26/24 0 06/25/25 Unknown History release atorvastatin 10 mg tablet 10 mg PO DAILY 02/26/2406/10 Unknown History acetaminophen 650 mg 650 mg PO Q12H PRN ARTHRITIS PAIN 06/25/25 06/25/25 Unknown History tablet,extended release loperamide 2 mg tablet 2 mg PO DAILY 06/25/2506/25 Unknown History Physical Exam 2 Vital Signs: Vital Signs: Last Vital Signs Temp 98.5 F 06/25/25 15:51 Pulse 107 H 06/25/25 19:24 Resp 19 06/25/25 19:24 BP 121/60 06/25/25 19:24 Pulse Ox 93 06/25/25 19:24 O2 Del Method High Flow Nasal C annula 06/25/25 19:24 O2 Flow Rate 45 06/25/25 19:24 BMI result Body Mass Index 25.6 Results Labs 06/25/25 14:53 06/25/25 14:53 Labs: Short CBC 06/25/25 Range/Units 14:53 WBC 7.1 (4.8-10.8) X10*3/uL Hgb 10.0 L (14.0-18.0) g/dl Hct 29.2 L (42.0-52.0) % Plt Count 155 L (160-400) X10*3/uL BMP 06/25/25 14:53 Sodium 138 Potassium 4.0 Chloride 107 Carbon Dioxide 19 L BUN 27 H Creatinine 1.47 H Calcium 9.3 Liver Function 06/25/25 Range/Units 14:53 Total Bilirubin 0.5 (0.0-1.0) mg/dL AST 33 (5-37) U/L ALT 16 (0-40) U/L Alkaline Phosphatase 142 H (39-117) U/L Albumin 4.0 (3.5-5.0) g/dL Urine 06/25/25 Range/Units 15:33 Urine Color Yellow Urine Appearance Cloudy Urine pH 6.5 (5.0-9.0) Ur Specific [place] 1.015 (1.005-1.025) Urine Protein >=1000 (4+) H (Neg-Trace) mg/dL Urine Glucose (UA) Negative (Negative) mg/dL
--- NOTE | 2025-06-25 20:29 | PM.CCN ---
Critical Care Event Note Summary Date of Service: 06/25/25 <Luna Caal NP - Last Filed: 06/25/25 20:41> Code activated: No <Luna Caal NP - Last Filed: 06/25/25 20:41> Narrative: This case had a high probability of a clinically significant, sudden, or life threatening deterioration of this patient's condition which required my full and direct attention, intervention and personal management. <Luna Caal NP - Last Filed: 06/25/25 20:41> Critical Care Time (minutes): 0 <Luna Caal NP - Last Filed: 06/25/25 20:41> 45 <Anthony Kaminski MD - Last Filed: 06/26/25 10:15> Comment: ?The patient is a 89-year-old male with a past medical history of? 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 body aches and feeling overall unwell for the past week.? He also noted bilateral lower extremity edema. Denies chest pain. ?In the emergency department,? patient? afebrile, hypertensive to 172/ 54, tachycardic to 100s, ? hypoxic to 86% on OxyMaskand and tachypneic to 30s.?? ? Laboratory data? only significant for? BUN 27, creatinine 1.47, BNP 1467,? troponin 257 with? will repeat downtrending to 245.4 EKG: sinus rhythm? with marked sinus arrhythmia? Chest x-ray :? I personally reviewed, and? consistent with pulmonary edema. Chest CTA: negative for pulmonary embolism. Viral panel: Negative ?ED course: Patient was given a total of? 60 of Lasix,? started on nitroglycerin drip and? BiPAP for management of? Congestive heart failure exacerbation in the emergency department.? ?Nitro drip only require for 2 hours.? Venous gas? did not demonstrate hypercapnia,? no need for BiPAP. Patient is switched to high-flow nasal cannula? 45% and tolerating well.? ?On my assessment patient alert and oriented x3,? in no respiratory distress speaking in full sentences.? Respiratory rate 18-22.? ?Patient does not require ICU level of care at this time.? Rec:? ?Obtain echocardiogram,? patient reports he goes to [facility] for his? PCP/ Cardiology. ?Continue diuresis daily Patient has underlying history of COPD maintain O2 saturations 88-93% ?Please reach out to ICU? team if patient?s condition? changes or worsens <Luna Caal NP - Last Filed: 06/25/25 20:41>
--- NOTE | 2025-06-25 21:26 | ECG_ITS ---
Test Reason : TACHYCARDIA Blood Pressure : */* mmHG Vent. Rate : 123 BPM Atrial Rate : * BPM P-R Int : * ms QRS Dur : 86 ms QT Int : 360 ms P-R-T Axes : * 62 -18 degrees QTcB Int : 515 ms Atrial fibrillation with rapid ventricular response ST & T wave abnormality, consider inferior ischemia Abnormal ECG When compared with ECG of 25-Jun-2025 14:56, Atrial fibrillation has replaced Sinus rhythm T wave inversion now evident in Inferior leads Nonspecific T wave abnormality now evident in Lateral leads Referred By: William Gonsales Electronically Signed By: Pradeep Berman
--- NOTE | 2025-06-25 21:56 | PM.IMHP ---
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 He also reports lower extremity edema, right lower extremity greater than left lower extremity which is chronic. He denies chest pain, fever, chills, nausea, vomiting, back pain or recent sick contacts. Does reports an episode of diaphoresis which has resolved. He has a chronic cough which she reports is at baseline. Initially the patient was saturating in the low 80s with OxyMask at 15 L, requiring transitioned to BiPAP with good improvement. IC was consulted and he received 2mg IV bumex and was transitioned to high-flow oxygen and has been maintaining in the low 90s. Review of Systems Constitutional: Constitutional: Denies body ache(s), Denies chills, Reports fatigue, Denies fever(s) and Denies headache(s) Eyes: Eyes: Denies change in vision ENT: Denies headache(s), Denies nasal congestion and Denies sore throat Cardiovascular: Cardiovascular: Denies chest pain, Reports rapid heart rate, Reports leg edema, Denies lightheadedness and Reports dyspnea Respiratory: Respiratory: Denies chest congestion, Reports cough, Reports dyspnea and Denies wheezing Gastrointestinal: Gastrointestinal: Denies abdominal pain, Denies nausea and Denies vomiting Genitourinary: Comments: Urostomy Musculoskeletal: Musculoskeletal: Denies back pain Integumentary/Breasts: Skin/Breast: Denies rash Neurologic: Denies confusion and Denies headache(s) Psychiatric: Psychiatric: Denies confusion Endocrine: Endocrine: Reports fatigue Hematologic/Lymphatic: Hematologic/Lymphatic: Denies easy bleeding and Denies easy bruising Allergic/Immunologic: Allergic/Immunologic: Denies wheezing [facility] Medical History Skin cancer IBS (irritable bowel syndrome) HLD (hyperlipidemia) GERD (gastroesophageal reflux disease) Mild chronic obstructive pulmonary disease CAD (coronary artery disease) History of bladder cancer Surgical History History of penectomy (~2017) Hx of prostatectomy (~2005) History of bladder surgery (~2005) Social History Patient Tobacco Use Status: Former Tobacco user Smoked in Last 30 Days: No Use of substances other than those prescribed or required for medical reasons: No Advance Directives: No Advance Directives Information Provided: No Do you have a plan to hurt others: No Plan Narrative: Previous smoker, previous heavy alcohol, no drug use Meds Allergies Allergy/AdvReac Type Severity Reaction Status Date / Time gluten (Gluten) Allergy Intermediate DIARRHEA Verified 06/25/25 14:44 polysorbate AdvReac Intermediate DIARRHEA Uncoded 06/25/25 14:44 Active Medications: Current Medications Amlodipine Besylate (Amlodipine Besylate 10 Mg Tablet) 10 mg PO DAILY [facility]; Protocol Last Admin: 06/25/25 18:17 Dose: 10 mg Carvedilol (Carvedilol 6.25 Mg Tablet) 6.25 mg PO DAILY [facility]; Protocol Dicyclomine HCl (Dicyclomine Hcl 10 Mg Capsule) 10 mg PO DAILY [facility] Heparin Sodium (Porcine) (Heparin Sodium,Porcine 5,000 Unit/Ml Vial) 5,000 unit SUBCUT Q8H [facility] Last Admin: 06/25/25 17:53 Dose: 5,000 unit Loperamide HCl (Loperamide Hcl 2 Mg Capsule) 2 mg PO DAILY [facility] Sodium Chloride (0.9 % Sodium Chloride Flush 3 Ml Syringe) 3 ml IVFLUSH QSHIFT [facility] Home Medications ?Medication ?Instructions ?Recorded ?Confirmed ?Last Taken ?Type amlodipine 10 mg tablet 10 mg PO DAILY 11/26/23 06/25/25 Unknown History carvedilol 6.25 mg tablet 6.25 mg PO DAILY 11/26/23 06/25/25 Unknown History dicyclomine 10 mg capsule 10 mg PO DAILY 11/26/23 06/25/25 Unknown History aspirin 81 mg tablet,delayed 81 mg PO DAILY 02/26/24 06/25/25 Unknown History release atorvastatin 10 mg tablet 10 mg PO DAILY 02/26/24 06/25/25 Unknown History acetaminophen 650 mg 650 mg PO Q12H PRN ARTHRITIS PAIN 06/25/25 06/25/25 Unknown History tablet,extended release loperamide 2 mg tablet 2 mg PO DAILY 06/25/25 06/25/25 Unknown History Physical Exam Vital Signs and Narrative: Vital Signs: Last Vital Signs Temp 98.4 F 06/25/25 21:29 Pulse 129 H 06/25/25 21:29 Resp 20 06/25/25 21:29 BP 122/55 L 06/25/25 21:29 Pulse Ox 93 06/25/25 21:29 O2 Del Method High Flow Nasal C annula 06/25/25 21:29 O2 Flow Rate 40 06/25/25 21:29 BMI result Body Mass Index 25.6 General: AOx3, no acute distress. seen with son. no conversational dyspnea Resp: Diminished throughout, no wheezing or crackles CVS: Tachycardic, RRR, +murmur GI: +BS, NT, no distention Skin: Warm, dry Neuro: Cranial nerves II-XII grossly intact bilaterally. Motor grossly intact bilaterally Extremities: 2+ pitting edema. RLE>LLE Psych: Appropriate affect Const: General: No confusion Orientation/consciousness: No confusion Neuro: General: No confusion Results Labs 06/25/25 14:53 06/25/25 14:53 Labs: Laboratory Results - last 24 hr 06/25/25 06/25/25 06/25/25 14:52 14:53 14:56 MCV 94.2 MCH 32.3 MCHC 34.2 RDW 14.8 Plt Count 155 L MPV 10.4 Immature Gran % (Auto) 0.3 Neut % (Auto) 67.0 Lymph % (Auto) 20.9 [place] % (Auto) 11.4 H Eos % (Auto) 0.3 Baso % (Auto) 0.1 Lymph # (Auto) 1.5 [place] # (Auto) 0.8 Eos # (Auto) 0.0 Baso # (Auto) 0.0 Abs Immat Gran (auto) 0.02 Absolute Neuts (auto) 4.7 Absolute Nucleated RBC 0.000 Nucleated RBC % (auto) 0.0 PT 12.3 INR 1.1 O2 Saturation ABG pH at Pt Temp ABG pCO2 at Pt Temp ABG pO2 at Pt Temp ABG HCO3 ABG Base Excess (Actual) VBG pH VBG pCO2 VBG pO2 VBG HCO3 VBG O2 Saturation VBG Base Excess Anion Gap 16 Estim Creat Clear Calc 33.6 Estimated GFR 45 Random Glucose 124 H Lactic Acid 1.7 Calcium 9.3 Magnesium 2.4 Total Bilirubin 0.5 AST 33 ALT 16 Alkaline Phosphatase 142 H B-Natriuretic Peptide 1467 H Total Protein 7.2 Albumin 4.0 Urine Color Urine Appearance Urine pH Ur Specific [place] Urine Protein Urine Glucose (UA) Urine Ketones Urine Blood Urine Nitrite Ur Leukocyte Esterase Urine RBC Urine WBC Ur Squamous Epith Cells Urine Bacteria Hyaline Casts Influenza Type A (PCR) NEGATIVE Influenza Type B (PCR) NEGATIVE RSV RNA Qual (PCR) NEGATIVE SARS-CoV-2 RNA (RT-PCR) NEGATIVE 06/25/25 06/25/25 06/25/25 15:01 15:33 16:37 MCV MCH MCHC RDW Plt Count MPV Immature Gran % (Auto) Neut % (Auto) Lymph % (Auto) [place] % (Auto) Eos % (Auto) Baso % (Auto) Lymph # (Auto) [place] # (Auto) Eos # (Auto) Baso # (Auto) Abs Immat Gran (auto) Absolute Neuts (auto) Absolute Nucleated RBC Nucleated RBC % (auto) PT INR O2 Saturation 81.0 ABG pH at Pt Temp 7.46 H ABG pCO2 at Pt Temp 29 L ABG pO2 at Pt Temp 54 L ABG HCO3 21 L ABG Base Excess (Actual) -1.6 VBG pH 7.45 H VBG pCO2 29 VBG pO2 86 VBG HCO3 20 L VBG O2 Saturation 98.0 VBG Base Excess -2.1 Anion Gap Estim Creat Clear Calc Estimated GFR Random Glucose Lactic Acid Calcium Magnesium Total Bilirubin AST ALT Alkaline Phosphatase B-Natriuretic Peptide Total Protein Albumin Urine Color Yellow Urine Appearance Cloudy Urine pH 6.5 Ur Specific [place] 1.015 Urine Protein >=1000 (4+) H Urine Glucose (UA) Negative Urine Ketones Negative Urine Blood Trace H Urine Nitrite Negative Ur Leukocyte Esterase Moderate (2+) H Urine RBC 0-2 Urine WBC 6-10 Ur Squamous Epith Cells 6-10 Urine Bacteria 4+ Hyaline Casts 11-20 Influenza Type A (PCR) Influenza Type B (PCR) RSV RNA Qual (PCR) SARS-CoV-2 RNA (RT-PCR) 06/25/25 17:41 MCV MCH MCHC RDW Plt Count MPV Immature Gran % (Auto) Neut % (Auto) Lymph % (Auto) [place] % (Auto) Eos % (Auto) Baso % (Auto) Lymph # (Auto) [place] # (Auto) Eos # (Auto) Baso # (Auto) Abs Immat Gran (auto) Absolute Neuts (auto) Absolute Nucleated RBC Nucleated RBC % (auto) PT INR O2 Saturation ABG pH at Pt Temp ABG pCO2 at Pt Temp ABG pO2 at Pt Temp ABG HCO3 ABG Base Excess (Actual) VBG pH 7.47 H VBG pCO2 32 VBG pO2 57 VBG HCO3 24 VBG O2 Saturation 85.0 VBG Base Excess 1.2 Anion Gap Estim Creat Clear Calc Estimated GFR Random Glucose Lactic Acid Calcium Magnesium Total Bilirubin AST ALT Alkaline Phosphatase B-Natriuretic Peptide Total Protein Albumin Urine Color Urine Appearance Urine pH Ur Specific [place] Urine Protein Urine Glucose (UA) Urine Ketones Urine Blood Urine Nitrite Ur Leukocyte Esterase Urine RBC Urine WBC Ur Squamous Epith Cells Urine Bacteria Hyaline Casts Influenza Type A (PCR) Influenza Type B (PCR) RSV RNA Qual (PCR) SARS-CoV-2 RNA (RT-PCR) Assessment and Plan (1) New onset of congestive heart failure: Status: Acute (2) New onset a-fib: Status: Acute (3) Elevated troponin: Status: Acute (4) ALCIDES (acute kidney injury): Status: Acute (5) Pleural effusion: Status: Acute (6) Chronic anemia: Status: Acute (7) QT prolongation: Status: Acute (8) UTI (urinary tract infection): Status: Acute Plan Patient is an 89-year-old male with a past medical history significant for 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 new onset CHF with acute exacerbation and pleural effusions - pitting edema and moderate bilateral pleural effisions on imaging - no leukocytosis or fever, no sepsis - CXR with - chest CTA negative for PE. - BNP 1467 - bedside echo with IVC full, B lines. LVH. --> CVF with pulmonary edema - given 40mg lasix, then 20mg then 2mg bumex with increased urine output - pt was on nitro gtt in ED due to HTN and placed on bipap. weaned to high flow and maintaining sats around 92 - echo ordered - cardiology aware, consult placed - monitor Is+Os - monitor BMP new onset a fib with RVR - pt started sustaining HRs in the 120s - initial EKG with sinus rhythm with marked sinus arrhythmia with occasional PVCs. Nonspecific ST abnormality, prolonged QT - repeat EKG after sustained tachycardia with atrial fibrillation with rapid ventricular response. ST and T-wave abnormality, consider inferior ischemia. Abnormal ECG. T-wave inversion no evident in the inferior leads. Nonspecific T-wave abnormality now evident in lateral leads - given metoprolol 5mg IV with good response - conitinue to monitor on tele - cardiology aware and consult as above - on heparin for VTE prophy Elevated troponin - initial troponin to 57, repeat 245, likely demand - initial EKG with sinus rhythm with marked sinus arrhythmia with occasional PVCs. Nonspecific ST abnormality, prolonged QT - repeat EKG after sustained tachycardia with atrial fibrillation with rapid ventricular response. ST and T-wave abnormality, consider inferior ischemia. Abnormal ECG. T-wave inversion no evident in the inferior leads. Nonspecific T-wave abnormality now evident in lateral leads - on heparin for VTE prophy - monitor on tele ALCIDES - creatinine 1.47 - avoid nephrotoxins when possible - monitor BMP Chronic anemia - hemoglobin 10.0, stable - no need for blood transfusion at this time - monitor CBC QT prolongation - QT 515 - magnesium 2.4 - avoid QT prolonging medications UTI - urine with trace blood and moderate leuks, 4+ bacteria, 6-10 WBC - started on ceftriaxone in ED, continue pending culture - monitor CBC Mild COPD, no acute exacerbation - continue home meds HTN - amlodipine when appropriate CAD - ASA/statin when appropriate IBS - dicyclomine and loperamide full code VTE prophy: heparin Patient with new onset CHF, new onset AFib and elevated troponins, requiring admission for at least 2 midnights stay for monitoring, cardiac consultation. Quality Stroke Does the patient have a stroke diagnosis?: No VTE Prior VTE?: No VTE Risk Level:: Medical - moderate - high VTE Device Contraindication: Treatment Not Indicated VTE Drug Contraindication: N/A - Med Ordered
--- NOTE | 2025-06-25 23:30 | PM.EVENT ---
Event Note Date of Service: 06/25/25 Event Note: pt having continued a fib, rate 115-130s. no response to the IV metoprolol. will give amiodarone bolus and start drip. reached out to cardiology, pending response Time Spent With Patient Time: Total time managing care of this patient today ____ minutes.
[2025-06-26] VITALS (12 sets, daily range): BP systolic 118–246; BP diastolic 46–59; PULSE 69–120; RESP 16–24; TEMP 36.4–36.8; O2SAT 94–96; BMI 25.6
[2025-06-26 00:45] LABS: Hematocrit 27.4 % (42.0-52.0); Hemoglobin 9.5 g/dl (14.0-18.0); Mean Corpuscular HGB Conc 34.7 g/dl (31.0-36.0); Mean Corpuscular Hemoglobin 32.5 pg (27.0-33.0); Mean Corpuscular Volume 93.8 fL (80.0-98.0); NRBC Abs Auto 0.000 X10*3/uL (0.0-0.012); NRBC Pct Auto 0.0 /100WBC (0.0-0.2); Platelet Count 139 X10*3/uL (160-400); Red Blood Count 2.92 X10*6/uL (4.60-5.80); White Blood Count 6.0 X10*3/uL (4.8-10.8)
[2025-06-26 00:53] LABS: INTERNATIONAL NORM RATIO 1.1 (0.9-1.1); Prothrombin Time 12.4 SEC (10.9-12.4)
[2025-06-26 00:55] LABS: PTT Heparin Drip 30.1 SEC (53-77.9)
[2025-06-26] MEDS: 0.9 % Sodium Chloride Flush 3 ML SYRINGE IVFLUSH ×2 (01:02→17:30)
[2025-06-26] MEDS: Heparin Sodium,Porcine/1/2NS 25,000 UNIT/250 ML IV.SOLN 10.7 UNIT IVCONT (01:08)
--- NOTE | 2025-06-26 01:52 | PC.NURSE ---
Around 2130 pts heart rate increased 115-140's. EKG showed A-fib. [place] text sent to the hospitalist who ordered a dose of Metoprolol. HR remained in the 115-130's. Hospitalist made aware and ordered Amiodarone. Shortly after Amiodarone was cancelled and new orders for Digoxin and Hepaprin placed in the MAR. Digoxin administered and pt tolerated well. Heparin drip started at 0108, pt tolerating well. No signs of bleeding noted. Next PTT HD due at 0715. Order placed in the MAR. Monitoring is ongoing.
--- NOTE | 2025-06-26 02:38 | PC.NURSE ---
LVM to Marta as pt is being transferred to [facility]. Pts sister, Marta Canales, made aware via telephone.
[2025-06-26 05:55] LABS: MANUAL DIFF FLAG NO; Venous Blood Gas Refer to POC result
[2025-06-26 05:57] LABS: Hematocrit 27.1 % (42.0-52.0); Hemoglobin 9.3 g/dl (14.0-18.0); Imm Gran Abs Auto 0.01 X10*3/uL (0.00-0.03); Imm Gran Pct Auto 0.2 % (0.0-0.4); Lymphocytes Absolute Auto 1.2 X10*3/uL (1.2-4.9); Mean Corpuscular HGB Conc 34.3 g/dl (31.0-36.0); Mean Corpuscular Hemoglobin 32.2 pg (27.0-33.0); Mean Corpuscular Volume 93.8 fL (80.0-98.0); NRBC Abs Auto 0.000 X10*3/uL (0.0-0.012); NRBC Pct Auto 0.0 /100WBC (0.0-0.2); Platelet Count 135 X10*3/uL (160-400); Red Blood Count 2.89 X10*6/uL (4.60-5.80); White Blood Count 5.6 X10*3/uL (4.8-10.8)
[2025-06-26 05:59] LABS: VBG HCO3 26 mmol/L (22-26); VBG O2 % Saturation 95.0 %
[2025-06-26 06:07] LABS: PTT Heparin Drip 87.1 SEC (53-77.9)
[2025-06-26 06:13] LABS: Albumin Level 3.5 g/dL (3.5-5.0); Anion Gap 14 (12-20); Blood Urea Nitrogen 25 mg/dL (9-16); Calcium 8.7 mg/dL (8.4-10.2); Carbon Dioxide 25 mmol/L (22-29); Chloride 106 mmol/L (96-108); Creatinine Clr Calc Pharmacy 32.0; Estimated Glomerular Filt Rate 43; Magnesium 2.2 mg/dL (1.6-2.6); Potassium 3.3 mmol/L (3.3-5.1); Sodium 142 mmol/L (135-145)
--- NOTE | 2025-06-26 07:37 | PC.NURSE ---
This RN assumed care of patient @ 0700 Patient awake and comfortable in bed Patient remains on high flow 47% O2 96% Denies SOB/WOB Patient on heparin drip 14 units, received message from pharmacy to decrease heparin by 2 units and redraw in 6 hours. Infusion decreased and lab order put in Patient remains tachy at 114 Son at bedside
[2025-06-26] MEDS: Furosemide 40 MG/4 ML VIAL IVPUSH ×2 (08:59→17:31)
--- NOTE | 2025-06-26 12:04 | MHC.CM.PN ---
PT REPORTS HE LIVES WITH HIS AND IS INDEPENDENT WITH CARE HE HAS NO SERVICES AND NO DME COPY OF HCP REQUESTED PCP: [facility] IMM DELIVERED DCP: HOME [facility]
--- NOTE | 2025-06-26 12:20 | HO.PM.IMPN ---
Subjective Subjective Date of Service: 06/26/25 Interval History: sob improving Physical Exam Exam: Exam: General: AO X 3, no acute distress, ill appearing Resp: diminished bases bilateral, no accessory muscles used CVS: S1,S2,Rapid irregular, 1+ bialteral edema GI: soft, non tender, non distended Neuro: motor grossly intact, alert Psych: appropriate affect, appropriate insight Vital Signs: Vital Signs: Last Vital Signs Temp 97.9 F 06/26/25 06:44 Pulse 116 H 06/26/25 09:01 Resp 24 H 06/26/25 07:42 BP 129/54 L 06/26/25 09:01 Pulse Ox 94 06/26/25 06:44 O2 Del Method High Flow Nasal C annula 06/26/25 06:44 O2 Flow Rate 40 06/26/25 06:44 BMI result Body Mass Index 25.6 Objective Data Active Medications Acetaminophen (Acetaminophen 325 Mg Tablet) 975 mg PO Q6H PRN PRN Reason: Pain, Mild 1-3,fever,headache Last Admin: 06/26/25 00:54 Dose: 975 mg Documented By: RAMAN Amlodipine Besylate (Amlodipine Besylate 10 Mg Tablet) 10 mg PO DAILY [facility]; Protocol Last Admin: 06/26/25 08:59 Dose: 10 mg Documented By: ALFRED Carvedilol (Carvedilol 6.25 Mg Tablet) 6.25 mg PO DAILY [facility]; Protocol Last Admin: 06/26/25 09:01 Dose: 6.25 mg Documented By: ALFRED Ceftriaxone Sodium (Ceftriaxone Sodium 1 Gm Vial) 1 gm IVPUSH Q24H [facility] Dicyclomine HCl (Dicyclomine Hcl 10 Mg Capsule) 10 mg PO DAILY [facility] Last Admin: 06/26/25 08:59 Dose: 10 mg Documented By: ALFRED Furosemide (Furosemide 40 Mg/4 Ml Vial) 40 mg IVPUSH BID@0900,1800 [facility]; Protocol Last Admin: 06/26/25 08:59 Dose: 40 mg Documented By: ALFRED Heparin Sodium (Porcine) (Heparin Sodium,Porcine 5,000 Unit/Ml Vial) 3,100 unit 40 unit/kg (3100 unit) IVPUSH PROTOCOL BOLUS PRN; Protocol PRN Reason: 40 unit/kg - Heparin Protocol Heparin Sodium (Porcine) (Heparin Sodium,Porcine 5,000 Unit/Ml Vial) 6,100 unit 80 unit/kg (6100 unit) IVPUSH PROTOCOL BOLUS PRN; Protocol PRN Reason: 80 unit/kg - Heparin Protocol Heparin Sodium/Sodium Chloride (Heparin Sodium,Porcine/1/2ns) 25,000 unit in 250 mls @ 0 mls/hr IVCONT .Q0M [facility]; Protocol Last Titration: 06/26/25 07:41 Dose: 12 units/kg/hr, 9.17 mls/hr Documented By: ALFRED Co-signed By: CORRIE Loperamide HCl (Loperamide Hcl 2 Mg Capsule) 2 mg PO DAILY [facility] Last Admin: 06/26/25 09:03 Dose: Not Given Documented By: ALFRED Non-Admin Reason: no loose stool Melatonin (Melatonin 3 Mg Tablet) 6 mg PO BEDTIME PRN PRN Reason: Insomnia Last Admin: 06/26/25 00:54 Dose: 6 mg Documented By: RAMAN Sodium Chloride (0.9 % Sodium Chloride Flush 3 Ml Syringe) 3 ml IVFLUSH QSHIFT [facility] Last Admin: 06/26/25 09:04 Dose: Not Given Documented By: ALFRED Non-Admin Reason: IV Running Labs 06/26/25 05:48 06/26/25 05:48 Labs: Laboratory Results - last 24 hr 06/25/25 06/25/25 06/25/25 14:52 14:53 14:56 MCV 94.2 MCH 32.3 MCHC 34.2 RDW 14.8 Plt Count 155 L MPV 10.4 Immature Gran % (Auto) 0.3 Neut % (Auto) 67.0 Lymph % (Auto) 20.9 [place] % (Auto) 11.4 H Eos % (Auto) 0.3 Baso % (Auto) 0.1 Lymph # (Auto) 1.5 [place] # (Auto) 0.8 Eos # (Auto) 0.0 Baso # (Auto) 0.0 Abs Immat Gran (auto) 0.02 Absolute Neuts (auto) 4.7 Absolute Nucleated RBC 0.000 Nucleated RBC % (auto) 0.0 PT 12.3 INR 1.1 aPTT Heparin Protocol O2 Saturation ABG pH at Pt Temp ABG pCO2 at Pt Temp ABG pO2 at Pt Temp ABG HCO3 ABG Base Excess (Actual) VBG pH VBG pCO2 VBG pO2 VBG HCO3 VBG O2 Saturation VBG Base Excess Anion Gap 16 Estim Creat Clear Calc 33.6 Estimated GFR 45 Random Glucose 124 H Lactic Acid 1.7 Calcium 9.3 Phosphorus Magnesium 2.4 Total Bilirubin 0.5 AST 33 ALT 16 Alkaline Phosphatase 142 H B-Natriuretic Peptide 1467 H Total Protein 7.2 Albumin 4.0 Urine Color Urine Appearance Urine pH Ur Specific [place] Urine Protein Urine Glucose (UA) Urine Ketones Urine Blood Urine Nitrite Ur Leukocyte Esterase Urine RBC Urine WBC Ur Squamous Epith Cells Urine Bacteria Hyaline Casts Influenza Type A (PCR) NEGATIVE Influenza Type B (PCR) NEGATIVE RSV RNA Qual (PCR) NEGATIVE SARS-CoV-2 RNA (RT-PCR) NEGATIVE 06/25/25 06/25/25 06/25/25 15:01 15:33 16:37 MCV MCH MCHC RDW Plt Count MPV Immature Gran % (Auto) Neut % (Auto) Lymph % (Auto) [place] % (Auto) Eos % (Auto) Baso % (Auto) Lymph # (Auto) [place] # (Auto) Eos # (Auto) Baso # (Auto) Abs Immat Gran (auto) Absolute Neuts (auto) Absolute Nucleated RBC Nucleated RBC % (auto) PT INR aPTT Heparin Protocol O2 Saturation 81.0 ABG pH at Pt Temp 7.46 H ABG pCO2 at Pt Temp 29 L ABG pO2 at Pt Temp 54 L ABG HCO3 21 L ABG Base Excess (Actual) -1.6 VBG pH 7.45 H VBG pCO2 29 VBG pO2 86 VBG HCO3 20 L VBG O2 Saturation 98.0 VBG Base Excess -2.1 Anion Gap Estim Creat Clear Calc Estimated GFR Random Glucose Lactic Acid Calcium Phosphorus Magnesium Total Bilirubin AST ALT Alkaline Phosphatase B-Natriuretic Peptide Total Protein Albumin Urine Color Yellow Urine Appearance Cloudy Urine pH 6.5 Ur Specific [place] 1.015 Urine Protein >=1000 (4+) H Urine Glucose (UA) Negative Urine Ketones Negative Urine Blood Trace H Urine Nitrite Negative Ur Leukocyte Esterase Moderate (2+) H Urine RBC 0-2 Urine WBC 6-10 Ur Squamous Epith Cells 6-10 Urine Bacteria 4+ Hyaline Casts 11-20 Influenza Type A (PCR) Influenza Type B (PCR) RSV RNA Qual (PCR) SARS-CoV-2 RNA (RT-PCR) 06/25/25 06/26/25 06/26/25 17:41 00:40 05:48 MCV 93.8 93.8 MCH 32.5 32.2 MCHC 34.7 34.3 RDW 14.9 14.7 Plt Count 139 L 135 L MPV 10.6 10.5 Immature Gran % (Auto) 0.2 Neut % (Auto) 60.2 Lymph % (Auto) 22.0 [place] % (Auto) 16.7 H Eos % (Auto) 0.5 Baso % (Auto) 0.4 Lymph # (Auto) 1.2 [place] # (Auto) 0.9 Eos # (Auto) 0.0 Baso # (Auto) 0.0 Abs Immat Gran (auto) 0.01 Absolute Neuts (auto) 3.4 Absolute Nucleated RBC 0.000 0.000 Nucleated RBC % (auto) 0.0 0.0 PT 12.4 INR 1.1 aPTT Heparin Protocol 30.1 L 87.1 H D O2 Saturation ABG pH at Pt Temp ABG pCO2 at Pt Temp ABG pO2 at Pt Temp ABG HCO3 ABG Base Excess (Actual) VBG pH 7.47 H VBG pCO2 32 VBG pO2 57 VBG HCO3 24 VBG O2 Saturation 85.0 VBG Base Excess 1.2 Anion Gap 14 Estim Creat Clear Calc 32.0 Estimated GFR 43 Random Glucose 107 Lactic Acid Calcium 8.7 D Phosphorus 4.0 Magnesium 2.2 Total Bilirubin AST ALT Alkaline Phosphatase B-Natriuretic Peptide Total Protein Albumin 3.5 Urine Color Urine Appearance Urine pH Ur Specific [place] Urine Protein Urine Glucose (UA) Urine Ketones Urine Blood Urine Nitrite Ur Leukocyte Esterase Urine RBC Urine WBC Ur Squamous Epith Cells Urine Bacteria Hyaline Casts Influenza Type A (PCR) Influenza Type B (PCR) RSV RNA Qual (PCR) SARS-CoV-2 RNA (RT-PCR) 06/26/25 05:54 MCV MCH MCHC RDW Plt Count MPV Immature Gran % (Auto) Neut % (Auto) Lymph % (Auto) [place] % (Auto) Eos % (Auto) Baso % (Auto) Lymph # (Auto) [place] # (Auto) Eos # (Auto) Baso # (Auto) Abs Immat Gran (auto) Absolute Neuts (auto) Absolute Nucleated RBC Nucleated RBC % (auto) PT INR aPTT Heparin Protocol O2 Saturation ABG pH at Pt Temp ABG pCO2 at Pt Temp ABG pO2 at Pt Temp ABG HCO3 ABG Base Excess (Actual) VBG pH 7.50 H VBG pCO2 33 VBG pO2 76 VBG HCO3 26 VBG O2 Saturation 95.0 VBG Base Excess 3.5 Anion Gap Estim Creat Clear Calc Estimated GFR Random Glucose Lactic Acid Calcium Phosphorus Magnesium Total Bilirubin AST ALT Alkaline Phosphatase B-Natriuretic Peptide Total Protein Albumin Urine Color Urine Appearance Urine pH Ur Specific [place] Urine Protein Urine Glucose (UA) Urine Ketones Urine Blood Urine Nitrite Ur Leukocyte Esterase Urine RBC Urine WBC Ur Squamous Epith Cells Urine Bacteria Hyaline Casts Influenza Type A (PCR) Influenza Type B (PCR) RSV RNA Qual (PCR) SARS-CoV-2 RNA (RT-PCR) Microbiology Microbiology Results: Microbiology 06/25/25 16:01 Urine Culture - Preliminary Urine clean catch - Clean Catch Midstream Culture too young to evaluate. 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 Cardiorenal, monitor Urinary tract infection Continue ceftriaxone, follow up cultures Coronary artery disease Continue aspirin and statin DVT prophylaxis with IV heparin Full code reason for continued hospitalization: IV diuresis, hypoxia Quality Stroke Does the patient have a stroke diagnosis?: No VTE Prior VTE?: No VTE Risk Level:: Medical - moderate - high VTE Device Contraindication: Treatment Not Indicated VTE Drug Contraindication: N/A - Med Ordered
[2025-06-26 12:28] LABS: PTT Heparin Drip 85.7 SEC (53-77.9)
--- NOTE | 2025-06-26 12:34 | PC.NURSE ---
12:00 PTT drawn results 85.7, heparin decreased by 2 units currently running 10 units. Redraw for 18:00 ordered No bleeding noted
--- NOTE | 2025-06-26 12:54 | PM.CNCAR ---
History of Present Illness History of Present Illness Date of Service: 06/26/25 Chief complaint: Hypoxic respiratory failure Narrative: Pleasant 89 year gentleman with new onset atrial fibrillation and congestive heart failure. 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 He said he was getting some sweating at nighttime over the last few days. He did not have any palpitations, chest pain or shortness of breath. He eventually was brought in to the emergency department and was noticed to be in AFib with RVR along with hypoxia. He was started on high-flow nasal cannula and imaging confirmed heart failure episode. He was given it appears also that he has broken out of atrial fibrillation spontaneously. He is denying any bleeding issues. Also denying any chest discomfort. EKG reviewed showing atrial fibrillation 123 beats per minute, normal axis, lateral ST-T changes-consider ischemia. QT interval 515 milliseconds. [facility] Past Medical History Medical History Skin cancer IBS (irritable bowel syndrome) HLD (hyperlipidemia) GERD (gastroesophageal reflux disease) Mild chronic obstructive pulmonary disease CAD (coronary artery disease) History of bladder cancer Surgical History Surgical History History of penectomy (~2017) Hx of prostatectomy (~2005) History of bladder surgery (~2005) Social History Social History Patient Tobacco Use Status: Former Tobacco user Smoked in Last 30 Days: No Use of substances other than those prescribed or required for medical reasons: No Advance Directives: No Advance Directives Information Provided: No Do you have a plan to hurt others: No Plan Nutrition Risks: No Nutritional Risk service: Yes Meds Allergies Allergy/AdvReac Type Severity Reaction Status Date / Time gluten (Gluten) Allergy Intermediate DIARRHEA Verified 06/25/25 14:44 polysorbate AdvReac Intermediate DIARRHEA Uncoded 06/25/25 14:44 Active Medications: Current Medications Acetaminophen (Acetaminophen 325 Mg Tablet) 975 mg PO Q6H PRN PRN Reason: Pain, Mild 1-3,fever,headache Last Admin: 06/26/25 00:54 Dose: 975 mg Amlodipine Besylate (Amlodipine Besylate 10 Mg Tablet) 10 mg PO DAILY [facility]; Protocol Last Admin: 06/26/25 08:59 Dose: 10 mg Aspirin (Aspirin Enteric Coated 81 Mg Tablet.) 81 mg PO DAILY [facility] Atorvastatin Calcium (Atorvastatin Calcium 10 Mg Tablet) 10 mg PO DAILY [facility] Carvedilol (Carvedilol 6.25 Mg Tablet) 6.25 mg PO DAILY [facility]; Protocol Last Admin: 06/26/25 09:01 Dose: 6.25 mg Ceftriaxone Sodium (Ceftriaxone Sodium 1 Gm Vial) 1 gm IVPUSH Q24H [facility] Dicyclomine HCl (Dicyclomine Hcl 10 Mg Capsule) 10 mg PO DAILY [facility] Last Admin: 06/26/25 08:59 Dose: 10 mg Furosemide (Furosemide 40 Mg/4 Ml Vial) 40 mg IVPUSH BID@0900,1800 [facility]; Protocol Last Admin: 06/26/25 08:59 Dose: 40 mg Heparin Sodium (Porcine) (Heparin Sodium,Porcine 5,000 Unit/Ml Vial) 3,100 unit 40 unit/kg (3100 unit) IVPUSH PROTOCOL BOLUS PRN; Protocol PRN Reason: 40 unit/kg - Heparin Protocol Heparin Sodium (Porcine) (Heparin Sodium,Porcine 5,000 Unit/Ml Vial) 6,100 unit 80 unit/kg (6100 unit) IVPUSH PROTOCOL BOLUS PRN; Protocol PRN Reason: 80 unit/kg - Heparin Protocol Heparin Sodium/Sodium Chloride (Heparin Sodium,Porcine/1/2ns) 25,000 unit in 250 mls @ 0 mls/hr IVCONT .Q0M [facility]; Protocol Last Titration: 06/26/25 12:30 Dose: 10 units/kg/hr, 7.64 mls/hr Loperamide HCl (Loperamide Hcl 2 Mg Capsule) 2 mg PO DAILY [facility] Last Admin: 06/26/25 09:03 Dose: Not Given Melatonin (Melatonin 3 Mg Tablet) 6 mg PO BEDTIME PRN PRN Reason: Insomnia Last Admin: 06/26/25 00:54 Dose: 6 mg Sodium Chloride (0.9 % Sodium Chloride Flush 3 Ml Syringe) 3 ml IVFLUSH QSHIFT [facility] Last Admin: 06/26/25 09:04 Dose: Not Given Home Medications ?Medication ?Instructions ?Recorded ?Confirmed ?Last Taken ?Type amlodipine 10 mg tablet 10 mg PO DAILY 11/26/23 06/25/25 Unknown History carvedilol 6.25 mg tablet 6.25 mg PO DAILY 11/26/23 06/25/25 Unknown History dicyclomine 10 mg capsule 10 mg PO DAILY 11/26/23 06/25/25 Unknown History aspirin 81 mg tablet,delayed 81 mg PO DAILY 02/26/24 06/25/25 Unknown History release atorvastatin 10 mg tablet 10 mg PO DAILY 02/26/24 06/25/25 Unknown History acetaminophen 650 mg 650 mg PO Q12H PRN ARTHRITIS PAIN 06/25/25 06/25/25 Unknown History tablet,extended release loperamide 2 mg tablet 2 mg PO DAILY 06/25/25 06/25/25 Unknown History Physical Exam Vital Signs: Vital Signs: Last Vital Signs Temp 97.9 F 06/26/25 06:44 Pulse 80 06/26/25 12:29 Resp 21 H 06/26/25 12:29 BP 129/54 L 06/26/25 09:01 Pulse Ox 95 06/26/25 12:29 O2 Del Method High Flow Nasal C annula 06/26/25 12:29 O2 Flow Rate 40 06/26/25 12:29 BMI result Body Mass Index 25.6 GENERAL APPEARANCE: in no acute distress, pleasant. NECK: no carotid bruit, + jugular venous distention. SKIN: no suspicious lesions, warm and dry. HEART: no murmurs, regular rate and rhythm. LUNGS: Crackles at bases. ABDOMEN: soft, nontender. EXTREMITIES: Right lower extremity edema more than left. PERIPHERAL PULSES: equal. NEUROLOGIC: No gross deficits, AAO X 3 Objective Labs and Meds 06/26/25 05:48 06/26/25 05:48 Lab results: Laboratory Results - last 24 hr 06/25/25 06/25/25 06/25/25 14:52 14:53 14:56 WBC 7.1 RBC 3.10 L Hgb 10.0 L Hct 29.2 L MCV 94.2 MCH 32.3 MCHC 34.2 RDW 14.8 Plt Count 155 L MPV 10.4 Immature Gran % (Auto) 0.3 Neut % (Auto) 67.0 Lymph % (Auto) 20.9 [place] % (Auto) 11.4 H Eos % (Auto) 0.3 Baso % (Auto) 0.1 Lymph # (Auto) 1.5 [place] # (Auto) 0.8 Eos # (Auto) 0.0 Baso # (Auto) 0.0 Abs Immat Gran (auto) 0.02 Absolute Neuts (auto) 4.7 Absolute Nucleated RBC 0.000 Nucleated RBC % (auto) 0.0 PT 12.3 INR 1.1 aPTT Heparin Protocol O2 Saturation ABG pH at Pt Temp ABG pCO2 at Pt Temp ABG pO2 at Pt Temp ABG HCO3 ABG Base Excess (Actual) VBG pH VBG pCO2 VBG pO2 VBG HCO3 VBG O2 Saturation VBG Base Excess Sodium 138 Potassium 4.0 Chloride 107 Carbon Dioxide 19 L Anion Gap 16 BUN 27 H Creatinine 1.47 H Estim Creat Clear Calc 33.6 Estimated GFR 45 Random Glucose 124 H Lactic Acid 1.7 Calcium 9.3 Phosphorus Magnesium 2.4 Total Bilirubin 0.5 AST 33 ALT 16 Alkaline Phosphatase 142 H Troponin I High Sens 257.0 H* B-Natriuretic Peptide 1467 H Total Protein 7.2 Albumin 4.0 Urine Color Urine Appearance Urine pH Ur Specific [place] Urine Protein Urine Glucose (UA) Urine Ketones Urine Blood Urine Nitrite Ur Leukocyte Esterase Urine RBC Urine WBC Ur Squamous Epith Cells Urine Bacteria Hyaline Casts Influenza Type A (PCR) NEGATIVE Influenza Type B (PCR) NEGATIVE RSV RNA Qual (PCR) NEGATIVE SARS-CoV-2 RNA (RT-PCR) NEGATIVE 06/25/25 06/25/25 06/25/25 15:01 15:33 16:37 WBC RBC Hgb Hct MCV MCH MCHC RDW Plt Count MPV Immature Gran % (Auto) Neut % (Auto) Lymph % (Auto) [place] % (Auto) Eos % (Auto) Baso % (Auto) Lymph # (Auto) [place] # (Auto) Eos # (Auto) Baso # (Auto) Abs Immat Gran (auto) Absolute Neuts (auto) Absolute Nucleated RBC Nucleated RBC % (auto) PT INR aPTT Heparin Protocol O2 Saturation 81.0 ABG pH at Pt Temp 7.46 H ABG pCO2 at Pt Temp 29 L ABG pO2 at Pt Temp 54 L ABG HCO3 21 L ABG Base Excess (Actual) -1.6 VBG pH 7.45 H VBG pCO2 29 VBG pO2 86 VBG HCO3 20 L VBG O2 Saturation 98.0 VBG Base Excess -2.1 Sodium Potassium Chloride Carbon Dioxide Anion Gap BUN Creatinine Estim Creat Clear Calc Estimated GFR Random Glucose Lactic Acid Calcium Phosphorus Magnesium Total Bilirubin AST ALT Alkaline Phosphatase Troponin I High Sens B-Natriuretic Peptide Total Protein Albumin Urine Color Yellow Urine Appearance Cloudy Urine pH 6.5 Ur Specific [place] 1.015 Urine Protein >=1000 (4+) H Urine Glucose (UA) Negative Urine Ketones Negative Urine Blood Trace H Urine Nitrite Negative Ur Leukocyte Esterase Moderate (2+) H Urine RBC 0-2 Urine WBC 6-10 Ur Squamous Epith Cells 6-10 Urine Bacteria 4+ Hyaline Casts 11-20 Influenza Type A (PCR) Influenza Type B (PCR) RSV RNA Qual (PCR) SARS-CoV-2 RNA (RT-PCR) 06/25/25 06/25/25 06/26/25 17:38 17:41 00:40 WBC 6.0 RBC 2.92 L Hgb 9.5 L Hct 27.4 L MCV 93.8 MCH 32.5 MCHC 34.7 RDW 14.9 Plt Count 139 L MPV 10.6 Immature Gran % (Auto) Neut % (Auto) Lymph % (Auto) [place] % (Auto) Eos % (Auto) Baso % (Auto) Lymph # (Auto) [place] # (Auto) Eos # (Auto) Baso # (Auto) Abs Immat Gran (auto) Absolute Neuts (auto) Absolute Nucleated RBC 0.000 Nucleated RBC % (auto) 0.0 PT 12.4 INR 1.1 aPTT Heparin Protocol 30.1 L O2 Saturation ABG pH at Pt Temp ABG pCO2 at Pt Temp ABG pO2 at Pt Temp ABG HCO3 ABG Base Excess (Actual) VBG pH 7.47 H VBG pCO2 32 VBG pO2 57 VBG HCO3 24 VBG O2 Saturation 85.0 VBG Base Excess 1.2 Sodium Potassium Chloride Carbon Dioxide Anion Gap BUN Creatinine Estim Creat Clear Calc Estimated GFR Random Glucose Lactic Acid Calcium Phosphorus Magnesium Total Bilirubin AST ALT Alkaline Phosphatase Troponin I High Sens 245.4 H* B-Natriuretic Peptide Total Protein Albumin Urine Color Urine Appearance Urine pH Ur Specific [place] Urine Protein Urine Glucose (UA) Urine Ketones Urine Blood Urine Nitrite Ur Leukocyte Esterase Urine RBC Urine WBC Ur Squamous Epith Cells Urine Bacteria Hyaline Casts Influenza Type A (PCR) Influenza Type B (PCR) RSV RNA Qual (PCR) SARS-CoV-2 RNA (RT-PCR) 08/06/26/25 06/26/25 05:48 05:54 12:13 WBC 5.6 RBC 2.89 L Hgb 9.3 L Hct 27.1 L MCV 93.8 MCH 32.2 MCHC 34.3 RDW 14.7 Plt Count 135 L MPV 10.5 Immature Gran % (Auto) 0.2 Neut % (Auto) 60.2 Lymph % (Auto) 22.0 [place] % (Auto) 16.7 H Eos % (Auto) 0.5 Baso % (Auto) 0.4 Lymph # (Auto) 1.2 [place] # (Auto) 0.9 Eos # (Auto) 0.0 Baso # (Auto) 0.0 Abs Immat Gran (auto) 0.01 Absolute Neuts (auto) 3.4 Absolute Nucleated RBC 0.000 Nucleated RBC % (auto) 0.0 PT INR aPTT Heparin Protocol 87.1 H D 85.7 H O2 Saturation ABG pH at Pt Temp ABG pCO2 at Pt Temp ABG pO2 at Pt Temp ABG HCO3 ABG Base Excess (Actual) VBG pH 7.50 H VBG pCO2 33 VBG pO2 76 VBG HCO3 26 VBG O2 Saturation 95.0 VBG Base Excess 3.5 Sodium 142 Potassium 3.3 Chloride 106 Carbon Dioxide 25 Anion Gap 14 BUN 25 H Creatinine 1.54 H Estim Creat Clear Calc 32.0 Estimated GFR 43 Random Glucose 107 Lactic Acid Calcium 8.7 D Phosphorus 4.0 Magnesium 2.2 Total Bilirubin AST ALT Alkaline Phosphatase Troponin I High Sens B-Natriuretic Peptide Total Protein Albumin 3.5 Urine Color Urine Appearance Urine pH Ur Specific [place] Urine Protein Urine Glucose (UA) Urine Ketones Urine Blood Urine Nitrite Ur Leukocyte Esterase Urine RBC Urine WBC Ur Squamous Epith Cells Urine Bacteria Hyaline Casts Influenza Type A (PCR) Influenza Type B (PCR) RSV RNA Qual (PCR) SARS-CoV-2 RNA (RT-PCR) Assessment and Plan (1) New onset of congestive heart failure: Status: Acute (2) New onset a-fib: Status: Acute Plan 89-year-old gentleman presenting with fairly acute onset symptoms of sweating and hypoxia. He was noticed to be in congestive heart failure along with AFib with RVR. He has been diuresed and overall clinically is improving. Agree with IV diuretics 40 mg IV b.i.d.. Add amiodarone 400 mg twice a day to keep him out of atrial fibrillation. He is currently on heparin drip and potentially can be transitioned to apixaban for anticoagulation. Echocardiography tomorrow. Thank you for allowing me to participate in the care of your patient. Please feel free to contact me if you have any questions. Procedures Date of Service Date of Service: 06/26/25
[2025-06-26 18:05] LABS: PTT Heparin Drip 63.8 SEC (53-77.9)
--- NOTE | 2025-06-26 18:26 | PC.NURSE ---
Patient [place], [place] 3 L O2 95% denies SOB/WOB Heparin drip running at 10 units. PTT 63.8 no rate change needed PTT HD ordered for 00:00 tomorrow No bleeding noted at this time Urostomy attached to suction draining clear yellow urine
--- NOTE | 2025-06-26 19:43 | PC.NURSE ---
assumed care of pt. Pt resting comfortably. Curtain opened.
--- NOTE | 2025-06-26 22:24 | PC.NURSE ---
this rn entered pt room, pt noted to be sitting at edge of bed, IV access removed, and tele leads removed. pt states he is unsure what happened. pt a&ox3 at this time but appears confused. This rn spoke to , who ordered IM medication. new access obtained, 20g left ac and 20g left bicep
[2025-06-26] MEDS: OLANZapine 10 MG VIAL 5 MG IM (22:25)
--- NOTE | 2025-06-26 23:27 | PC.NURSE ---
pt remains confused at this time, x2 ivs removed, new iv established. Camera in place for patient safety, initials from camera room, SUHA
--- NOTE | 2025-06-26 23:53 | PC.NURSE ---
pt given melatonin for sleep.
[2025-06-27] VITALS (8 sets, daily range): BP systolic 103–152; BP diastolic 52–78; PULSE 73–91; RESP 18–20; TEMP 36.2–37.1; O2SAT 92–99; BMI 22.5
[2025-06-27 00:15] LABS: PTT Heparin Drip 34.5 SEC (53-77.9)
[2025-06-27] MEDS: Heparin Sodium,Porcine/1/2NS 25,000 UNIT/250 ML IV.SOLN 10.7 UNIT IVCONT (03:11)
--- NOTE | 2025-06-27 07:00 | CA_ITS ---
Transthoracic Echocardiogram Patient (Last, First, Middle): Yovany Carter, Gender: Male Date of : 1935 Age: 89 Procedure Date: 06/27/2025 Procedure Type: Transthoracic Echocardiogram Location: [facility] [place] Height: 172.72 cm Weight: 67.13 kg BSA: 1.80 m2 Heart Rate: bpm BP: 135 / 61 mmHg Extension Edger: Referring MD: Anthony Kaminski MD Vinyl Installer: Yehuda Bentley MD Symptoms: dyspnea Study Quality: Fair ECG Rhythm: Sinus with extra beats Conclusions: - 1. Normal LV ejection fraction 55-60% with moderate left ventricular hypertrophy with impaired relaxation filling pattern with elevated filling pressures 2. At least mildly dilated left atrium 3. Moderate aortic stenosis, with paradoxical low-flow 4. Normal RV systolic pressure 5. No gross pericardial effusion Findings Procedure Information Contrast agent, definity, is being given per protocol without apparent complications. Left Ventricle Normal left ventricular size and systolic function. There is moderately increased left ventricular wall thickness. The visually estimated ejection fraction is between 55-60%. Spectral Doppler is indicative of an impaired relaxation filling pattern. Elevated filling pressures. E/E prime ratio is >15, consistent with elevated filling pressures. Right Ventricle Normal right ventricular cavity size and systolic function. Atria The left atrium is mildly dilated. There is no evidence of interatrial shunt. The right atrium is normal in size. Aortic Valve There is moderate calcification of the aortic valve. There is moderate aortic valve stenosis. The peak aortic gradient is 24 mmHg.The mean gradient is 14 mmHg. The aortic valve area is 1.27 cm2. There is mild aortic valve regurgitation. Mitral Valve Normal mitral valve structure and function. There is trace mitral valve regurgitation. There is no mitral valve stenosis. Pulmonic Valve The pulmonic valve was not well visualized. Tricuspid Valve Normal tricuspid valve structure. There is trace tricuspid valve regurgitation. The right ventricular systolic pressure is normal. The right ventricular systolic pressure is 14 mmHg. Normal right atrial pressure. There is no evidence of pulmonary hypertension. Great Vessels The pulmonary artery was not well visualized. There is no dilatation of the ascending aorta measuring 3.10 cm. Small plaque is seen in the sino tubular ridge. Venous The inferior vena cava is normal in size and collapses greater than 50% with inspiration. Pericardium/Pleural There is no evidence of pericardial effusion. Prior Study Comparison No previous study in the last 5 years for comparison Measurements 2D Linear Measurements IVSd: 1.47 0.6-0.9/0.6-1.0 cm LVIDd: 4.31 3.9-5.3/4.2-5.9 cm LVIDd Index: 2.39 2.4-3.2/2.2-3.1 cm/m2 LVIDs: 3.19 2.0-3.6 cm LVPWd: 1.47 0.7-1.1 cm Ao Root: 3.00 2.1-3.5 cm LA Diam: 3.30 2.7-3.8/3.0-4.0 cm LAIDs Index: 1.83 1.5-2.3 cm/m2 LV Mass: 313.06 67-162/88-224 g LV Mass Index: 173.92 43-95/49-115 g/m2 LVOT Diam: 2.30 3.0+(-)1.3 cm 2D Systolic Function EF 4C: 56.10 >55% EF 2C: 57.90 >55% EF BiP: 55.00 >55% Mitral Valve MV Pk E: 0.51 MV PK A: 0.99 MV Decel Time: 356.00 E/A: 0.50 E'Lateral: 2.94 E'Medial: 2.94 E/E' Med: 17.30 E/E' Lat: 17.30 PHT: 104.00 MVA PHT: 2.12 Decel [place]: 1.43 Aortic Valve AoV Pk Jeff: 2.47 AoV Mn Jeff: 1.73 AoV VTI: 0.50 AoV Pk Grad: 24.00 Aov Mn Grad: 14.00 CHANDL[place] Cont.VTI: 1.27 LVOT LVOT Pk Jeff: 0.58 LVOT Mn Jeff: 0.41 LVOT VTI: 0.15 LVOT Pk Grad: 1.00 LVOT Mn Grad: 1.00 LVOT Diam: 2.30 LVOT Area: 4.15 Diastolic Function MV Pk E: 0.51 MV Pk A: 0.99 E/A: 0.50 E'Medial: 2.94 E/E' Med: 17.30 E' Laterial: 2.94 E/E' Lat: 17.30 Right Ventricle TAPSE (mm): 25.00 TVS' Jeff: 12.00 Tricuspid Valve TR Pk Jeff: 1.67 TR Pk Grad: 11.00 RA Press: 3.00 RVSP: 14.00 Great Vessels Aorta Ao Root-2D: 3.00 2.0-3.7 cm Ao Asc: 3.10 2.1-3.4 cm Pulmonary Valve PV Pk Jeff: 1.29 Peak PV Grad: 7.00 Updated in Other Vendor System with Status of Final Yehuda Bentley MD electronically signed on 06/27/2025 4:29:57 PM with status of Final
[2025-06-27] MEDS: 0.9 % Sodium Chloride Flush 3 ML SYRINGE IVFLUSH ×2 (07:58→16:14)
[2025-06-27] MEDS: Furosemide 40 MG/4 ML VIAL IVPUSH (07:58)
[2025-06-27] MEDS: Aspirin Enteric Coated 81 MG TABLET.DR PO (07:59)
[2025-06-27 08:25] LABS: Hematocrit 31.2 % (42.0-52.0); Hemoglobin 10.6 g/dl (14.0-18.0); Hemoglobin 10.7 g/dl (14.0-18.0); Mean Corpuscular HGB Conc 34.0 g/dl (31.0-36.0); Mean Corpuscular HGB Conc 34.3 g/dl (31.0-36.0); Mean Corpuscular Hemoglobin 32.0 pg (27.0-33.0); Mean Corpuscular Hemoglobin 32.2 pg (27.0-33.0); Mean Corpuscular Volume 94.0 fL (80.0-98.0); Mean Corpuscular Volume 94.3 fL (80.0-98.0); NRBC Abs Auto 0.000 X10*3/uL (0.0-0.012); NRBC Pct Auto 0.0 /100WBC (0.0-0.2); Platelet Count 170 X10*3/uL (160-400); Platelet Count 175 X10*3/uL (160-400); Red Blood Count 3.31 X10*6/uL (4.60-5.80); Red Blood Count 3.32 X10*6/uL (4.60-5.80); White Blood Count 8.4 X10*3/uL (4.8-10.8); White Blood Count 8.5 X10*3/uL (4.8-10.8)
[2025-06-27 08:28] LABS: INTERNATIONAL NORM RATIO 1.1 (0.9-1.1); Prothrombin Time 13.1 SEC (10.9-12.4)
[2025-06-27 08:48] LABS: Anion Gap 17 (12-20); Blood Urea Nitrogen 28 mg/dL (9-16); Calcium 9.1 mg/dL (8.4-10.2); Carbon Dioxide 25 mmol/L (22-29); Chloride 103 mmol/L (96-108); Creatinine Clr Calc Pharmacy 28.8; Estimated Glomerular Filt Rate 39; Potassium 3.7 mmol/L (3.3-5.1); Sodium 141 mmol/L (135-145)
[2025-06-27 08:55] LABS: PTT Heparin Drip 158.7 SEC (53-77.9)
[2025-06-27 09:03] LABS: Troponin-I High Sensitivity 287.7 ng/L (<3.5-35.0)
[2025-06-27 10:18] LABS: PTT Heparin Drip 74.4 SEC (53-77.9)
--- NOTE | 2025-06-27 10:31 | P.PNIM_ITS ---
Subjective Subjective Date of Service: 06/27/25 Interval History: sob improving Physical Exam 2 Vital Signs: Vital Signs: Last Vital Signs Temp 97.4 F 06/27/25 08:00 Pulse 86 06/27/25 08:00 Resp 20 06/27/25 08:00 BP 121/62 06/27/25 08:00 Pulse Ox 98 06/27/25 08:00 O2 Del Method Nasal Cannula 06/27/25 08:00 O2 Flow Rate 3 06/27/25 08:00 BMI result Body Mass Index 22.5 GENERAL APPEARANCE: in no acute distress, pleasant. NECK: no carotid bruit, + jugular venous distention. SKIN: no suspicious lesions, warm and dry. HEART: no murmurs, regular rate and rhythm. LUNGS: Crackles at bases. ABDOMEN: soft, nontender. EXTREMITIES: Right lower extremity edema more than left. PERIPHERAL PULSES: equal. NEUROLOGIC: No gross deficits, AAO X 3 Objective Data Active Medications Acetaminophen (Acetaminophen 325 Mg Tablet) 975 mg PO Q6H PRN PRN Reason: Pain, Mild 1-3,fever,headache Last Admin: 06/26/25 00:54 Dose: 975 mg Documented By: RAMAN Amiodarone HCl (Amiodarone Hcl 200 Mg Tablet) 400 mg PO BID [facility] Last Admin: 06/27/25 07:59 Dose: 400 mg Documented By: KANIKA Amlodipine Besylate (Amlodipine Besylate 10 Mg Tablet) 10 mg PO DAILY [facility]; Protocol Last Admin: 06/27/25 07:59 Dose: 10 mg Documented By: KANIKA Aspirin (Aspirin Enteric Coated 81 Mg Tablet.) 81 mg PO DAILY [facility] Last Admin: 06/27/25 07:59 Dose: 81 mg Documented By: KANIKA Atorvastatin Calcium (Atorvastatin Calcium 10 Mg Tablet) 10 mg PO DAILY [facility] Last Admin: 06/27/25 07:59 Dose: 10 mg Documented By: KANIKA Carvedilol (Carvedilol 6.25 Mg Tablet) 6.25 mg PO DAILY [facility]; Protocol Last Admin: 06/27/25 07:59 Dose: 6.25 mg Documented By: KANIKA Ceftriaxone Sodium (Ceftriaxone Sodium 1 Gm Vial) 1 gm IVPUSH Q24H [facility] Last Admin: 06/26/25 17:31 Dose: 1 gm Documented By: ALFRED Dicyclomine HCl (Dicyclomine Hcl 10 Mg Capsule) 10 mg PO DAILY [facility] Last Admin: 06/27/25 07:59 Dose: 10 mg Documented By: KANIKA Furosemide (Furosemide 40 Mg/4 Ml Vial) 40 mg IVPUSH BID@0900,1800 [facility]; Protocol Last Admin: 06/27/25 07:58 Dose: 40 mg Documented By: KANIKA Heparin Sodium (Porcine) (Heparin Sodium,Porcine 5,000 Unit/Ml Vial) 3,100 unit 40 unit/kg (3100 unit) IVPUSH PROTOCOL BOLUS PRN; Protocol PRN Reason: 40 unit/kg - Heparin Protocol Heparin Sodium (Porcine) (Heparin Sodium,Porcine 5,000 Unit/Ml Vial) 6,100 unit 80 unit/kg (6100 unit) IVPUSH PROTOCOL BOLUS PRN; Protocol PRN Reason: 80 unit/kg - Heparin Protocol Last Admin: 06/27/25 00:21 Dose: 6,100 unit Documented By: AAYLA Heparin Sodium/Sodium Chloride (Heparin Sodium,Porcine/1/2ns) 25,000 unit in 250 mls @ 0 mls/hr IVCONT .Q0M [facility]; Protocol Last Titration: 06/27/25 08:57 Dose: 14.01 units/kg/hr, 10.7 mls/hr Documented By: KANIKA Co-signed By: BAYLEE Loperamide HCl (Loperamide Hcl 2 Mg Capsule) 2 mg PO DAILY [facility] Last Admin: 06/27/25 07:59 Dose: Not Given Documented By: KANIKA Non-Admin Reason: Patient Refused Melatonin (Melatonin 3 Mg Tablet) 6 mg PO BEDTIME PRN PRN Reason: Insomnia Last Admin: 06/26/25 23:53 Dose: 6 mg Documented By: AYALA Sodium Chloride (0.9 % Sodium Chloride Flush 3 Ml Syringe) 3 ml IVFLUSH QSHIFT [facility] Last Admin: 06/27/25 07:58 Dose: 3 ml Documented By: KANIKA Labs 06/27/25 08:13 06/27/25 08:12 Labs: Laboratory Results - last 24 hr 06/26/25 06/26/25 06/26/25 12:13 17:51 23:56 MCV MCH MCHC RDW Plt Count MPV Absolute Nucleated RBC Nucleated RBC % (auto) PT INR aPTT Heparin Protocol 85.7 H 63.8 D 34.5 L D Hold Blue Top SEE NOTE Anion Gap Estim Creat Clear Calc Estimated GFR Random Glucose Calcium 06/27/25 06/27/25 06/27/25 08:12 08:13 08:13 MCV 94.0 94.3 MCH 32.2 MCHC RDW Plt Count MPV Absolute Nucleated RBC Nucleated RBC % (auto) PT 13.1 H INR 1.1 aPTT Heparin Protocol 158.7 H* D Hold Blue Top Anion Gap 17 Estim Creat Clear Calc 28.8 Estimated GFR 39 Random Glucose 124 H Calcium 9.1 06/27/25 06/27/25 06/27/25 08:13 08:13 08:13 MCV MCH 32.0 MCHC 34.3 34.0 RDW 14.6 14.6 Plt Count 175 D MPV Absolute Nucleated RBC Nucleated RBC % (auto) PT INR aPTT Heparin Protocol Hold Blue Top Anion Gap Estim Creat Clear Calc Estimated GFR Random Glucose Calcium 06/27/25 06/27/25 06/27/25 08:13 08:13 08:13 MCV MCH MCHC RDW Plt Count 170 MPV 10.7 10.7 Absolute Nucleated RBC 0.000 0.000 Nucleated RBC % (auto) 0.0 PT INR aPTT Heparin Protocol Hold Blue Top Anion Gap Estim Creat Clear Calc Estimated GFR Random Glucose Calcium 06/27/25 06/27/25 08:13 09:59 MCV MCH MCHC RDW Plt Count MPV Absolute Nucleated RBC Nucleated RBC % (auto) 0.0 PT INR aPTT Heparin Protocol 74.4 D Hold Blue Top Anion Gap Estim Creat Clear Calc Estimated GFR Random Glucose Calcium Microbiology Microbiology Results: Microbiology 06/25/25 14:52 Blood Culture - Preliminary Blood - Venous No growth after 24 hours. 06/25/25 14:52 Blood Culture - Preliminary Blood - Venous No growth after 24 hours. 06/25/25 16:01 Urine Culture - Preliminary Urine clean catch - Clean Catch Midstream Culture too young to evaluate. 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 Cardiorenal, monitor Urinary tract infection Continue ceftriaxone, follow up cultures Coronary artery disease Continue aspirin and statin DVT prophylaxis with IV heparin Full code reason for continued hospitalization: IV diuresis, hypoxia Quality Stroke Does the patient have a stroke diagnosis?: No VTE Prior VTE?: No VTE Risk Level:: Medical - moderate - high VTE Device Contraindication: Treatment Not Indicated VTE Drug Contraindication: N/A - Med Ordered
--- NOTE | 2025-06-27 11:18 | PM.PNCARD ---
Subjective Subjective Date of Service: 06/27/25 Principal diagnosis: CHF, atrial fibrillation. Interval history: Patient overnight had some confusion. Discussed with his sons who were present at bedside. Patient was just moved in the middle of the night from the ED to the floor and had poor sleep. Appears drowsy right now. Remains in sinus rhythm with intermittent PACs and short runs. Shortness of breath is significantly improved. Currently using 3 L of nasal cannula. Intake and output chart is not properly documented. Review of Systems Review of Systems Yes Unobtainable due to mental status Physical Exam Vital Signs: Last Vital Signs Temp 97.4 F 06/27/25 08:00 Pulse 86 06/27/25 08:00 Resp 20 06/27/25 08:00 BP 121/62 06/27/25 08:00 Pulse Ox 98 06/27/25 08:00 O2 Del Method Nasal Cannula 06/27/25 08:00 O2 Flow Rate 3 06/27/25 08:00 BMI result Body Mass Index 22.5 Const General: cooperative, comfortable and other (Drowsy) Nutritional Appearance: thin Neck Neck: Yes trachea midline, Yes supple and Yes no JVD (Mild AJR) Resp Effort & Inspection: decreased respiratory effort Auscultation: no rales, no wheezes and breath sounds absent on the right (Base) Cardio Rate: regular rate Rhythm: abnormal rhythm with ectopic beats Heart sounds: S1 normal heart sound present, no click, no gallops and Murmur heart sound present systolic late GI Auscultation: normal bowel sounds Skin General skin exam: no rashes or lesions noted Neuro General: moves all extremities Extrem General: No clubbing, No cyanosis and Yes edema Objective Labs and Meds 06/27/25 08:13 06/27/25 08:12 Lab results: Laboratory Results - last 24 hr 06/26/25 06/26/25 06/26/25 12:13 17:51 23:56 WBC RBC Hgb Hct MCV MCH MCHC RDW Plt Count MPV Absolute Nucleated RBC Nucleated RBC % (auto) PT INR aPTT Heparin Protocol 85.7 H 63.8 D 34.5 L D Hold Blue Top SEE NOTE Sodium Potassium Chloride Carbon Dioxide Anion Gap BUN Creatinine Estim Creat Clear Calc Estimated GFR Random Glucose Calcium Troponin I High Sens 06/27/25 06/27/25 06/27/25 08:12 08:13 08:13 WBC 8.5 8.4 RBC 3.32 L Hgb Hct MCV MCH MCHC RDW Plt Count MPV Absolute Nucleated RBC Nucleated RBC % (auto) PT 13.1 H INR 1.1 aPTT Heparin Protocol 158.7 H* D Hold Blue Top Sodium 141 Potassium 3.7 Chloride 103 Carbon Dioxide 25 Anion Gap 17 BUN 28 H Creatinine 1.68 H Estim Creat Clear Calc 28.8 Estimated GFR 39 Random Glucose 124 H Calcium 9.1 Troponin I High Sens 287.7 H* 06/27/25 06/27/25 06/27/25 08:13 08:13 08:13 WBC RBC 3.31 L Hgb 10.7 L 10.6 L Hct 31.2 L 31.2 L MCV 94.0 MCH MCHC RDW Plt Count MPV Absolute Nucleated RBC Nucleated RBC % (auto) PT INR aPTT Heparin Protocol Hold Blue Top Sodium Potassium Chloride Carbon Dioxide Anion Gap BUN Creatinine Estim Creat Clear Calc Estimated GFR Random Glucose Calcium Troponin I High Sens 06/27/25 06/27/25 06/27/25 08:13 08:13 08:13 WBC RBC Hgb Hct MCV 94.3 MCH 32.2 32.0 MCHC 34.3 34.0 RDW 14.6 Plt Count MPV Absolute Nucleated RBC Nucleated RBC % (auto) PT INR aPTT Heparin Protocol Hold Blue Top Sodium Potassium Chloride Carbon Dioxide Anion Gap BUN Creatinine Estim Creat Clear Calc Estimated GFR Random Glucose Calcium Troponin I High Sens 06/27/25 06/27/25 06/27/25 08:13 08:13 08:13 WBC RBC Hgb Hct MCV MCH MCHC RDW 14.6 Plt Count 175 D 170 MPV 10.7 10.7 Absolute Nucleated RBC 0.000 Nucleated RBC % (auto) PT INR aPTT Heparin Protocol Hold Blue Top Sodium Potassium Chloride Carbon Dioxide Anion Gap BUN Creatinine Estim Creat Clear Calc Estimated GFR Random Glucose Calcium Troponin I High Sens 06/27/25 06/27/25 06/27/25 08:13 08:13 09:59 WBC RBC Hgb Hct MCV MCH MCHC RDW Plt Count MPV Absolute Nucleated RBC 0.000 Nucleated RBC % (auto) 0.0 0.0 PT INR aPTT Heparin Protocol 74.4 D Hold Blue Top Sodium Potassium Chloride Carbon Dioxide Anion Gap BUN Creatinine Estim Creat Clear Calc Estimated GFR Random Glucose Calcium Troponin I High Sens Progress Note: A&P Assessment and plan (1) New onset of congestive heart failure: Status: Acute Assessment and Plan: New onset congestive heart failure in setting of rapid atrial fibrillation. This most likely suggest that he might have underlying significant aortic stenosis by clinical exam. Need echocardiogram. His creatinine is rising slightly in his oxygenation has improved. I would lower his Lasix therapy to 20 mg b.i.d.. Strict intake and output chart salt required. Follow-up BNP and BNP tomorrow. Management was discussed with patient's sons at bedside. Discussed that echocardiogram as well play a significant role in determining course of action for the future. They understand agree. Blood pressure is normalized at current point time. (2) New onset a-fib: Status: Acute Assessment and Plan: Atrial fibrillation has converted back to sinus rhythm. Still having runs of PACs and PACs. Continue with amiodarone loading 400 mg b.i.d.. Continue monitor CBC. I would consider switching him to oral anticoagulation therapy with Eliquis. His troponin leaks her most likely due to acute congestive heart failure and possibly underlying significant aortic stenosis. Will follow with you. Time Spent With Patient Time: Total time managing care of this patient today ____ minutes. Progress Note: Quality Stroke Does the patient have a stroke diagnosis?: No Procedures Date of Service Date of Service: 06/27/25
--- NOTE | 2025-06-27 14:14 | P.CDIM_ITS ---
PROVIDER RESPONSE TEXT: To clarify, the appropriate diagnosis supported by the clinical indicators: Yes, UTI is related to / associated with / due to urostomy QUERY TEXT: PHYSICIAN'S DOCUMENTATION REQUEST Date of Query: 06/27/2025 02:06 PM EDT Patient Name: Yovany Carter Admit Date: 06/25/2025 Dear Javier Springer MD, A review of the medical record indicates additional documentation may be needed. Please review below and update the documentation accordingly. Documentation includes the conditions of UTI and urostomy. Clinical Indicators: IV Ceftriaxone UC pending Please clarify the relationship between these conditions: Yes, UTI is related to / associated with / due to urostomy No, UTI is not related to / associated with / due to urostomy Other (explain) Clinically unable to determine (explain) Thank you, Yandy Dickens RN Use of terms such as suspected, likely, concern for, or probable (associated with a specific diagnosis that is being evaluated, monitored, or treated as if it exists) are acceptable and can be coded in the inpatient setting, when documented at the time of discharge. Please use your independent medical judgment in providing your response. THIS QUERY IS PART OF THE PERMANENT MEDICAL RECORD
--- NOTE | 2025-06-27 14:19 | MHC.CM.PN ---
PER MD ROUNDS/PN, PT NOT MEDICALLY CLEARED, STILL REQUIRING IV DIURESIS AND TREATMENT FOR HYPOXIA DCP: HOME [facility]IA [facility]
[2025-06-27 16:48] LABS: PTT Heparin Drip 58.2 SEC (53-77.9)
[2025-06-27] MEDS: Furosemide 40 MG/4 ML VIAL 20 MG IVPUSH (18:28)
[2025-06-28] MEDS: Heparin Sodium,Porcine/1/2NS 25,000 UNIT/250 ML IV.SOLN 7.64 UNIT IVCONT (02:54)
[2025-06-28 03:19] VITALS: BP 143/61; PULSE 82; RESP 18; TEMP 36.7; O2SAT 93
[2025-06-28 07:22] LABS: Hematocrit 30.0 % (42.0-52.0); Hemoglobin 9.9 g/dl (14.0-18.0); Mean Corpuscular HGB Conc 33.0 g/dl (31.0-36.0); Mean Corpuscular Hemoglobin 31.9 pg (27.0-33.0); Mean Corpuscular Volume 96.8 fL (80.0-98.0); NRBC Abs Auto 0.000 X10*3/uL (0.0-0.012); NRBC Pct Auto 0.0 /100WBC (0.0-0.2); Platelet Count 188 X10*3/uL (160-400); Red Blood Count 3.10 X10*6/uL (4.60-5.80); White Blood Count 9.4 X10*3/uL (4.8-10.8)
[2025-06-28 07:38] VITALS: BP 101/57; PULSE 83; RESP 20; TEMP 36.2; O2SAT 96
[2025-06-28 07:44] LABS: Anion Gap 16 (12-20); Blood Urea Nitrogen 34 mg/dL (9-16); Calcium 9.0 mg/dL (8.4-10.2); Carbon Dioxide 25 mmol/L (22-29); Chloride 102 mmol/L (96-108); Creatinine Clr Calc Pharmacy 25.2; Estimated Glomerular Filt Rate 33; Potassium 3.2 mmol/L (3.3-5.1); Sodium 140 mmol/L (135-145)
[2025-06-28] MEDS: Aspirin Enteric Coated 81 MG TABLET.DR PO (08:20)
[2025-06-28] MEDS: Potassium Chloride ER 20 MEQ TAB.ER.PRT 40 MEQ PO (08:20)
[2025-06-28] MEDS: 0.9 % Sodium Chloride Flush 3 ML SYRINGE IVFLUSH ×3 (08:21→22:30)
[2025-06-28 09:13] LABS: PTT Heparin Drip 47.1 SEC (53-77.9)
--- NOTE | 2025-06-28 09:41 | PM.PNCARD ---
Subjective Subjective Date of Service: 06/28/25 Principal diagnosis: CHF, atrial fibrillation. Interval history: Patient much more awake today. Remains in sinus rhythm with no significant PACs. Echocardiogram showed moderate to moderately severe aortic stenosis. Not severe aortic stenosis. Filling pressures on right atrium looked okay. Creatinine is slightly bumped up today. Denies any chest pain. Denies any shortness of breath. Off oxygen since yesterday Review of Systems Constitutional: Reports weakness Cardiovascular: Reports no additional cardiovascular complaints Respiratory: Reports no additional respiratory complaints Gastrointestinal: Reports no additional gastrointestinal complaints Genitourinary: Reports no additional male genitourinary complaints Musculoskeletal: Reports no additional musculoskeletal complaints Reports system reviewed and no additional complaints, except as documented and Reports weakness Endocrine: Reports no additional endocrine complaints Hematologic/Lymphatic: Reports no additional hematologic/lymphatic complaints Physical Exam Vital Signs: Last Vital Signs Temp 97.2 F 06/28/25 07:38 Pulse 83 06/28/25 07:38 Resp 20 06/28/25 07:38 BP 101/57 L 06/28/25 07:38 Pulse Ox 96 06/28/25 07:38 O2 Del Method Room Air 06/28/25 07:38 O2 Flow Rate 3 06/27/25 16:00 BMI result Body Mass Index 22.5 Const General: cooperative, comfortable and other (Drowsy) Nutritional Appearance: thin Neck Neck: Yes trachea midline, Yes supple and Yes no JVD (Mild AJR) Resp Effort & Inspection: decreased respiratory effort Auscultation: no rales, no wheezes and breath sounds absent on the right (Base) Cardio Rate: regular rate Rhythm: abnormal rhythm with ectopic beats Heart sounds: S1 normal heart sound present, no click, no gallops and Murmur heart sound present systolic late GI Auscultation: normal bowel sounds Skin General skin exam: no rashes or lesions noted Neuro General: moves all extremities Extrem General: No clubbing, No cyanosis and Yes edema Objective Labs and Meds 06/28/25 06:41 06/28/25 06:41 Lab results: Laboratory Results - last 24 hr 06/27/25 06/27/25 06/28/25 09:59 16:28 06:41 WBC 9.4 RBC 3.10 L Hgb 9.9 L Hct 30.0 L MCV 96.8 MCH 31.9 MCHC 33.0 RDW 14.9 Plt Count 188 MPV 11.2 Absolute Nucleated RBC 0.000 Nucleated RBC % (auto) 0.0 aPTT Heparin Protocol 74.4 D 58.2 D Sodium 140 Potassium 3.2 L Chloride 102 Carbon Dioxide 25 Anion Gap 16 BUN 34 H Creatinine 1.92 H Estim Creat Clear Calc 25.2 Estimated GFR 33 Random Glucose 140 H Calcium 9.0 06/28/25 08:26 WBC RBC Hgb Hct MCV MCH MCHC RDW Plt Count MPV Absolute Nucleated RBC Nucleated RBC % (auto) aPTT Heparin Protocol 47.1 L Sodium Potassium Chloride Carbon Dioxide Anion Gap BUN Creatinine Estim Creat Clear Calc Estimated GFR Random Glucose Calcium Progress Note: A&P Assessment and plan (1) Congestive heart failure: Status: Acute Assessment and Plan: Heart failure sudden-onset most likely due to atrial fibrillation with underlying diastolic dysfunction and moderate to moderately severe aortic stenosis but not directly responsible. Patient may also have underlying ischemic heart disease given his prior history of significant carotid vascular disease which has not been evaluated in quite a bit time. Creatinine is rising and he appears clinically euvolemic. Would use Lasix as outpatient on a PRN basis. Discussed with patient's son who understands. I would continue with Sandra. Management of aortic stenosis as below. Outpatient ischemic workup (2) Paroxysmal atrial fibrillation: Status: Acute Assessment and Plan: Paroxysmal atrial fibrillation suppressed on amiodarone therapy. I think this would lead to significant improvement in his overall heart failure syndrome. I would continue with 400 mg b.i.d. loading for 2 weeks followed by 200 mg daily. Continue full oral anticoagulation with Eliquis. (3) Aortic stenosis: Status: Acute Assessment and Plan: Aortic stenosis which is moderate to moderately severe. Not cause for his heart failure but contributing to it. Will need monitoring. However does not require TAVR at this point time. Full oral anticoagulation as above. Statin therapy. Will follow-up as outpatient. Will sign of the case today. Time Spent With Patient Time: Total time managing care of this patient today ____ minutes. Progress Note: Quality Stroke Does the patient have a stroke diagnosis?: No Procedures Date of Service Date of Service: 06/28/25
[2025-06-28 10:59] VITALS: BP 122/58; PULSE 70; RESP 20; TEMP 36.3; O2SAT 95
--- NOTE | 2025-06-28 11:58 | HO.PM.IMPN ---
Subjective Subjective Date of Service: 06/28/25 Interval History: sob resolved Physical Exam Vital Signs: Vital Signs: Last Vital Signs Temp 97.3 F 06/28/25 10:59 Pulse 70 06/28/25 10:59 Resp 20 06/28/25 10:59 BP 122/58 L 06/28/25 10:59 Pulse Ox 95 06/28/25 10:59 O2 Del Method Room Air 06/28/25 10:59 O2 Flow Rate 3 06/27/25 16:00 BMI result Body Mass Index 22.5 Const: General: cooperative, comfortable and other (Drowsy) Nutritional Appearance: thin Neck: Neck: Yes trachea midline, Yes supple and Yes no JVD (Mild AJR) Resp: Effort & Inspection: decreased respiratory effort Auscultation: no rales, no wheezes and breath sounds absent on the right (Base) Cardio: Rate: regular rate Rhythm: abnormal rhythm with ectopic beats Heart sounds: S1 normal heart sound present, no click, no gallops and Murmur heart sound present systolic late GI: Auscultation: normal bowel sounds Skin: General skin exam: no rashes or lesions noted Neuro: General: moves all extremities Extrem: General: No clubbing, No cyanosis and Yes edema Objective Data Active Medications Acetaminophen (Acetaminophen 325 Mg Tablet) 975 mg PO Q6H PRN PRN Reason: Pain, Mild 1-3,fever,headache Last Admin: 06/26/25 00:54 Dose: 975 mg Documented By: RAMAN Amiodarone HCl (Amiodarone Hcl 200 Mg Tablet) 400 mg PO BID [facility] Last Admin: 06/28/25 08:20 Dose: 400 mg Documented By: BETTIE Amlodipine Besylate (Amlodipine Besylate 10 Mg Tablet) 10 mg PO DAILY [facility]; Protocol Last Admin: 06/28/25 08:20 Dose: 10 mg Documented By: BETTIE Aspirin (Aspirin Enteric Coated 81 Mg Tablet.) 81 mg PO DAILY [facility] Last Admin: 06/28/25 08:20 Dose: 81 mg Documented By: BETTIE Atorvastatin Calcium (Atorvastatin Calcium 10 Mg Tablet) 10 mg PO DAILY [facility] Last Admin: 06/28/25 08:20 Dose: 10 mg Documented By: BETTIE Carvedilol (Carvedilol 6.25 Mg Tablet) 6.25 mg PO DAILY [facility]; Protocol Last Admin: 06/28/25 08:20 Dose: 6.25 mg Documented By: BETTIE Ceftriaxone Sodium (Ceftriaxone Sodium 1 Gm Vial) 1 gm IVPUSH Q24H [facility] Last Admin: 06/27/25 16:14 Dose: 1 gm Documented By: SEB Dicyclomine HCl (Dicyclomine Hcl 10 Mg Capsule) 10 mg PO DAILY [facility] Last Admin: 06/28/25 08:20 Dose: 10 mg Documented By: BETTIE Loperamide HCl (Loperamide Hcl 2 Mg Capsule) 2 mg PO DAILY [facility] Last Admin: 06/28/25 08:19 Dose: Not Given Documented By: BETTIE Non-Admin Reason: Patient Refused Melatonin (Melatonin 3 Mg Tablet) 6 mg PO BEDTIME PRN PRN Reason: Insomnia Last Admin: 06/26/25 23:53 Dose: 6 mg Documented By: AYALA Sodium Chloride (0.9 % Sodium Chloride Flush 3 Ml Syringe) 3 ml IVFLUSH QSHIFT [facility] Last Admin: 06/28/25 08:21 Dose: 3 ml Documented By: BETTIE Labs 06/28/25 06:41 06/28/25 06:41 Labs: Laboratory Results - last 24 hr 06/27/25 06/28/25 06/28/25 16:28 06:41 08:26 MCV 96.8 MCH 31.9 MCHC 33.0 RDW 14.9 Plt Count 188 MPV 11.2 Absolute Nucleated RBC 0.000 Nucleated RBC % (auto) 0.0 aPTT Heparin Protocol 58.2 D 47.1 L Anion Gap 16 Estim Creat Clear Calc 25.2 Estimated GFR 33 Random Glucose 140 H Calcium 9.0 Microbiology Microbiology Results: Microbiology 06/25/25 16:01 Urine Culture - Final Urine clean catch - Clean Catch Midstream 06/25/25 14:52 Blood Culture - Preliminary Blood - Venous No growth after 48 hours. 06/25/25 14:52 Blood Culture - Preliminary Blood - Venous No growth after 48 hours. 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 with ileal conduit and urostomy, prostatectomy, penectomy, hypertension, COPD, CAD, GERD, hyperlipidemia, IBS, skin cancer presented with shortness of breath Acute hypoxic respiratory failure due to acute on chronic diastolic CHF, new onset AFib with RVR, NSTEMI received 48hr heparin, will change to low dose eliquis (age, creatinine) diuresed well, creatinine increased and weaned to room air (from high flow), will hold lasix and use prn on discharge echo with normal EF mod- mod/severe continue amiodarone load, change to 200mg daily on 07/10/25 Acute kidney injury hold lasix, now on sock drier side, monitor outpatient Urinary tract infection Continue ceftriaxone, culture grew mixed refugio Coronary artery disease Continue eliquis and statin dc asa DVT prophylaxis eliquis Full code reason for continued hospitalization: dispo planning Quality Stroke Does the patient have a stroke diagnosis?: No VTE Prior VTE?: No VTE Risk Level:: Medical - moderate - high VTE Device Contraindication: Treatment Not Indicated VTE Drug Contraindication: N/A - Med Ordered
--- NOTE | 2025-06-28 12:12 | P.DS_ITS ---
DS: Providers Provider Date of Service: 06/28/25 Date of admission: 06/25/25 17:11 Date of discharge: 06/28/25 Primary care physician: Ko Stubbs MD Consults: 06/25/25 22:00 Consult to Cardiology Routine Consulting Provider: Pradeep Berman Reason for consultation: new onset CHF, elevated trops Has provider been notified: No DS: Diagnosis Discharge Diagnosis (1) Hypertensive urgency: Status: Acute DS: Summary Hospital Course Hospital Course: from initial hpi: 89-year-old male with a past medical history significant for 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 He also reports lower extremity edema, right lower extremity greater than left lower extremity which is chronic. He denies chest pain, fever, chills, nausea, vomiting, back pain or recent sick contacts. Does reports an episode of diaphoresis which has resolved. He has a chronic cough which she reports is at baseline. Initially the patient was saturating in the low 80s with OxyMask at 15 L, requiring transitioned to BiPAP with good improvement. IC was consulted and he received 2mg IV bumex and was transitioned to high-flow oxygen and has been maintaining in the low 90s. hospital course: Patient was admitted for acute hypoxic respiratory failure due to acute on chronic diastolic CHF, new onset atrial fibrillation with rapid ventricular response and type 2 NSTEMI. He received 48 hours of IV heparin on discharge changing to low-dose Eliquis due to aging elevated creatinine. He diuresed well with IV Lasix and was weaned from high-flow down to room air and shortness of breath resolved. Lasix is now on hold on discharge and will use as needed for increased weight gain and edema. Echocardiogram showed normal ejection fraction with moderate to moderate to severe aortic stenosis we will follow up with Cardiology. Patient was loaded with amiodarone and converted to sinus rhythm. He will continue amiodarone loading dose till 07/10/2025 and then decrease to 200 mg daily. For acute kidney injury creatinine is about 1.9 at time of discharge and she will be monitored outpatient. For urinary tract infection urine culture grew mixed refugio was treated with ceftriaxone on discharge will continue 3 more days of Ceftin. For coronary artery disease was continued on Eliquis and statin, aspirin has been discontinued. Patient is feeling better was seen by PT who recommended STR to which patient will be discharged. he is expected to require less than 30 days. Time Attestation Discharge Coordination Time (in mins): 37 Quality: Safe Use of Opioids Does Pt have an Active Cancer Diagnosis on the Problem List?: No Quality: Stroke Does the patient have a stroke diagnosis?: No Physical Exam Vital Signs: Vital Signs: Last Vital Signs Temp 97.3 F 06/28/25 10:59 Pulse 70 06/28/25 10:59 Resp 20 06/28/25 10:59 BP 122/58 L 06/28/25 10:59 Pulse Ox 95 06/28/25 10:59 O2 Del Method Room Air 06/28/25 10:59 O2 Flow Rate 3 06/27/25 16:00 BMI result Body Mass Index 22.5 Const: General: cooperative, comfortable and other (Drowsy) Nutritional Appearance: thin Neck: Neck: Yes trachea midline, Yes supple and Yes no JVD (Mild AJR) Resp: Effort & Inspection: decreased respiratory effort Auscultation: no rales, no wheezes and breath sounds absent on the right (Base) Cardio: Rate: regular rate Rhythm: abnormal rhythm with ectopic beats Heart sounds: S1 normal heart sound present, no click, no gallops and Murmur heart sound present systolic late GI: Auscultation: normal bowel sounds Skin: General skin exam: no rashes or lesions noted Neuro: General: moves all extremities Extrem: General: No clubbing, No cyanosis and Yes edema DS: Data Data Completed and Pending Labs on day of discharge: Laboratory Results - last 24 hr 06/27/25 06/28/25 06/28/25 16:28 06:41 08:26 WBC 9.4 RBC 3.10 L Hgb 9.9 L Hct 30.0 L MCV 96.8 MCH 31.9 MCHC 33.0 RDW 14.9 Plt Count 188 MPV 11.2 Absolute Nucleated RBC 0.000 Nucleated RBC % (auto) 0.0 aPTT Heparin Protocol 58.2 D 47.1 L Sodium 140 Potassium 3.2 L Chloride 102 Carbon Dioxide 25 Anion Gap 16 BUN 34 H Creatinine 1.92 H Estim Creat Clear Calc 25.2 Estimated GFR 33 Random Glucose 140 H Calcium 9.0 Preliminary micro results at discharge 06/25/25 14:52 Blood Culture - Preliminary Blood - Venous No growth after 48 hours. 06/25/25 14:52 Blood Culture - Preliminary Blood - Venous No growth after 48 hours. Discharge Plan Discharge Anticipated Discharge Date/Time: 06/28/25 12:09 Patient Disposition: Xfer SNF Discharge Diagnosis: nstemi, afib, chf Referrals: Ko Stubbs MD [Primary Care Provider, Internal Medicine] - 1 Week Discharge Medications: New amiodarone 200 mg Tablet 400 mg PO BID Qty: 132 0RF Rx Instructions: 400mg bid until 07/10/25 then 200mg daily Eliquis 2.5 mg Tablet 2.5 mg PO BID Qty: 180 0RF furosemide 20 mg Tablet 20 mg PO DAILY PRN (Reason: edema, weight gain, sob) Qty: 90 0RF Protocol: Hold for SBP< HOLD for SBP < : 90 Jardiance 25 mg Tablet 25 mg PO DAILY Qty: 90 0RF cefuroxime axetil 250 mg tablet 250 mg PO BID Qty: 6 0RF Continued acetaminophen 650 mg Tablet Extended Release 650 mg PO Q12H PRN (Reason: ARTHRITIS PAIN) loperamide 2 mg Tablet 2 mg PO DAILY Rx Instructions: administer after each loose stool until symptoms controlled; do not exceed 8 mg per 24 hrs atorvastatin 10 mg tablet 10 mg PO DAILY amlodipine 10 mg tablet 10 mg PO DAILY carvedilol 6.25 mg tablet 6.25 mg PO DAILY dicyclomine 10 mg capsule 10 mg PO DAILY Discontinued aspirin 81 mg tablet,delayed release (DR/EC) 81 mg PO DAILY Diet: Advance to usual diet Activity on Discharge: As tolerated Stand Alone Forms: Patient Portal Discharge page Print Language: Kinyarwanda Care Plan Goals: Manage AFib, heart failure Health Concerns: AFib, heart failure Plan of Treatment: Med changes per med reconciliation, follow up with Cardiology Lasix as as needed for increased weight gain, edema, shortness for breath Assessment: See above
[2025-06-28 15:25] VITALS: BP 139/64; PULSE 73; RESP 18; TEMP 36.7; O2SAT 97
[2025-06-28 15:50] LABS: PTT Heparin Drip 33.3 SEC (53-77.9)
--- NOTE | 2025-06-28 16:16 | MHC.CM.PN ---
Addendum entered by Elisa Iniguez 06/28/25 16:20: This CM requested pts son bring in a copy of his dads HCP. Original Note: PT rec STR. This CM met with pt and his present at bedside to discuss STR options, they requested this CM speak with their son Miguel Ángel about it. This CM contact Miguel Ángel at [phone]. Per Miguel Ángel, he is agreeable to sending rehab referrals to the following: [facility], [facility], [facility], [facility], and [facility]. Referrals sent via [facility], awaiting bed offers. Pt and family aware that CM will review STR options with them tomorrow.
[2025-06-28 19:16] VITALS: BP 102/60; PULSE 84; RESP 18; TEMP 36.3; O2SAT 93
[2025-06-29] VITALS: BP 129/60; PULSE 86; RESP 18; TEMP 36.9; O2SAT 90
[2025-06-29 03:10] VITALS: BP 135/60; PULSE 77; RESP 18; TEMP 36.2; O2SAT 90
[2025-06-29 07:24] VITALS: BP 141/63; PULSE 81; RESP 20; TEMP 37.2; O2SAT 95
[2025-06-29] MEDS: Aspirin Enteric Coated 81 MG TABLET.DR PO (09:46)
[2025-06-29] MEDS: Lidocaine 4 % Patch ADH..PATCH 1 PATCH TRANSDERMA (09:47)
[2025-06-29 11:29] VITALS: BP 102/60; PULSE 85; RESP 18; TEMP 36.5; O2SAT 95
[2025-06-29 11:41] VITALS: BP 117/54; PULSE 72; RESP 19; TEMP 36.5; O2SAT 98
== END 2025-06-29 15:26 | disposition skilled nursing facility (03) | DRG 280 ==
LOC: HO.ED 17:31 → HO.EDOVER 17:38 → HO.ICU 19:32 → HO.EDOVER 19:40 → HO.IMC 06-27 02:18
PROVIDERS: Internal Medicine; Internal Medicine Pulmonary Disease; Physician Assistant; Admitting Provider Internal Medicine; Emergency Provider Emergency Medicine; PCP Family Medicine; Visit Provider Hospitalist
DX: I48.91 Unspecified atrial fibrillation (principal); I50.33 Acute on chronic diastolic (congestive) heart failure; I21.A1 Myocardial infarction type 2; J96.01 Acute respiratory failure with hypoxia; T83.518A Infection and inflammatory reaction due to other urinary catheter, initial encounter; J44.1 Chronic obstructive pulmonary disease with (acute) exacerbation; N17.9 Acute kidney failure, unspecified; N39.0 Urinary tract infection, site not specified; I35.0 Nonrheumatic aortic (valve) stenosis; I25.10 Atherosclerotic heart disease of native coronary artery without angina pectoris; D64.9 Anemia, unspecified; I16.0 Hypertensive urgency; I11.0 Hypertensive heart disease with heart failure; Z85.51 Personal history of malignant neoplasm of bladder; Z85.59 Personal history of malignant neoplasm of other urinary tract organ; Z20.822 Contact with and (suspected) exposure to COVID-19; Z79.899 Other long term (current) drug therapy
CPT/HCPCS: 36415; 71045; 71275; 80048; 80053; 81001; 82040; 82803; 83605; 83735; 83880; 84100; 84484; 85025; 85027; 85610; 85730; 87040; 87086; 87637; 93005; 93306; 93971; 94640; 97162; 99285; J0616; J0696; J1160; J1644; J1938; J1939; J2305; J2359; Q9957; Q9967

== ENCOUNTER → 2025-06-25 14:38 | Outpatient (BNV) | payer MEDICARE, SELFPAY | PROVIDERS: Emergency Provider Emergency Medicine; PCP Family Medicine; Visit Provider Radiology Diagnostic Radiology | DX: J98.11 Atelectasis (principal) | CPT/HCPCS: 71045; 71275 ==

== ENCOUNTER 2025-06-25 17:11 | Outpatient (BNV) | payer MEDICARE, SELFPAY | END 2025-06-26 07:39 | PROVIDERS: Admitting Provider Internal Medicine; Emergency Provider Emergency Medicine; PCP Family Medicine; Visit Provider Specialist | DX: R22.41 Localized swelling, mass and lump, right lower limb (principal) | CPT/HCPCS: 93971 ==

== ENCOUNTER 2025-06-25 17:11 | Outpatient (BNV) | payer MEDICARE, SELFPAY | END 2025-06-27 07:00 | PROVIDERS: Admitting Provider Internal Medicine; Emergency Provider Emergency Medicine; PCP Family Medicine; Visit Provider Internal Medicine Cardiovascular Disease | DX: I42.2 Other hypertrophic cardiomyopathy (principal); I35.2 Nonrheumatic aortic (valve) stenosis with insufficiency; I51.7 Cardiomegaly | CPT/HCPCS: 93306 ==

== ENCOUNTER → 2025-06-25 17:11 | Outpatient (BNV) | payer MEDICARE, SELFPAY | PROVIDERS: Admitting Provider Internal Medicine; Emergency Provider Emergency Medicine; PCP Family Medicine; Visit Provider Registered Nurse Community Health | DX: I48.91 Unspecified atrial fibrillation (principal); J96.01 Acute respiratory failure with hypoxia | CPT/HCPCS: 99232 ==

== ENCOUNTER → 2025-06-25 17:11 | Outpatient (BNV) | payer MEDICARE, SELFPAY | PROVIDERS: Admitting Provider Internal Medicine; Emergency Provider Emergency Medicine; PCP Family Medicine; Visit Provider Physician Assistant | DX: I16.0 Hypertensive urgency (principal) | CPT/HCPCS: 99223; 99232; 99499 ==

== ENCOUNTER → 2025-06-25 17:11 | Outpatient (BNV) | payer MEDICARE, SELFPAY | PROVIDERS: Admitting Provider Internal Medicine; Emergency Provider Emergency Medicine; PCP Family Medicine; Visit Provider Internal Medicine Cardiovascular Disease | DX: I50.9 Heart failure, unspecified (principal); I48.91 Unspecified atrial fibrillation | CPT/HCPCS: 93010; 99233 ==